=== PATIENT | female | born 1940 | race Caucasian/White ===

== ENCOUNTER 2019-07-01 15:19 | Emergency (ER) | payer MEDICARE ==
[2019-07-01] MEDS ORDERED: Sodium Chloride 0.9% 1000 ML 1,000 ML IV STA ×2 (15:38→17:19)
[2019-07-01] MEDS ORDERED: Zofran 4 MG/2 ML VIAL IV ONE (15:38)
[2019-07-01] MEDS ORDERED: Pepcid 20 MG VIAL IV ONE ×2 (15:38→15:41)
[2019-07-01] MEDS ORDERED: Zofran 4 MG/2 ML VIAL ONE (15:41)
[2019-07-01] MEDS ORDERED: Sodium Chloride 0.9% 1000 ML 1,000 ML ONE (15:41)
[2019-07-01 15:53] LABS: Lactic Acid 5.4 (0.4-2.0)
[2019-07-01 15:56] LABS: Hemoglobin 13.3 gm/dl (12.0-16.0); Mean Cell Volume 88.8 fl (78-100); Mean Corpuscular Hemoglobin 30.3 pg (26-32); Mean Corpuscular Hgb Concent. 34.1 g/dl (32-36); Mean Platelet Volume 9.9 fl (6-9.5); Platelet Count 225 K/mm3 (150-450); Red Blood Count 4.39 M/mm3 (4.1-5.4); Red Cell Distribution Width 14.6 % (11.5-14.0); White Blood Count 8.1 K/mm3 (4.0-10.5)
--- NOTE | 2019-07-01 16:02 | ERPHSYRPT ---
- History of Present Illness Time Seen by Provider: 07/01/19 16:00 Source: patient, family Exam Limitations: no limitations Patient Subjective Stated Complaint: pt family states that pt has not been eating for the past 2 weeks, vomitting started 45 minutes ago, pt has had little oral intake Triage Nursing Assessment: pt came into the er via wheelchair, pt vomiting, pt hypertensive, abdomen soft and distended, hypoactive bowel sounds, pt has hx of dementia Physician History: pt family states that pt has not been eating for the past 2 weeks, vomitting started 45 minutes ago, pt has had little oral intake pt has hx of dementia Timing/Duration: today Associated Symptoms: loss of appetite, weakness Allergies/Adverse Reactions: No Known Drug Allergies Allergy (Unverified 07/01/19 15:50) Home Medications: Amiodarone HCl 200 mg PO DAILY 07/01/19 [History] Atenolol 50 mg PO DAILY 07/01/19 [History] Donepezil HCl 23 mg PO DAILY 07/01/19 [History] Duloxetine HCl 60 mg PO HS 07/01/19 [History] Lisinopril 40 mg PO DAILY 07/01/19 [History] Memantine HCl [Memantine HCl ER] 28 mg PO DAILY 07/01/19 [History] Metformin HCl 1,000 mg PO BID 07/01/19 [History] Pravastatin Sodium 20 mg PO DAILY 07/01/19 [History] Rivaroxaban [Xarelto] 15 mg PO DAILY 07/01/19 [History] Hx Tetanus, Diphtheria Vaccination/Date Given: Yes Hx Influenza Vaccination/Date Given: No Hx Pneumococcal Vaccination/Date Given: No Immunizations Up to Date: Yes - Review of Systems Constitutional: No Fever, No Chills Eyes: No Symptoms Ears, Nose, & Throat: No Symptoms Respiratory: No Cough, No Dyspnea Cardiac: No Chest Pain, No Edema, No Syncope Abdominal/Gastrointestinal: Vomiting, No Abdominal Pain, No Nausea, No Diarrhea Genitourinary Symptoms: No Dysuria Musculoskeletal: No Back Pain, No Neck Pain Skin: No Rash Neurological: No Dizziness, No Focal Weakness, No Sensory Changes Psychological: No Symptoms Endocrine: No Symptoms All Other Systems: Reviewed and Negative - Past Medical History Pertinent Past Medical History: Yes Neurological History: Dementia ENT History: Cataracts Cardiac History: Arrhythmia Respiratory History: No Pertinent History Endocrine Medical History: Diabetes Type II Musculoskeletal History: No Pertinent History GI Medical History: No Pertinent History History: Renal Disease Psycho-Social History: Anxiety Female Reproductive Disorders: No Pertinent History Other Medical History: stage renal failure - Past Surgical History Past Surgical History: Yes Neuro Surgical History: No Pertinent History Cardiac: No Pertinent History Respiratory: No Pertinent History Gastrointestinal: Cholecystectomy Genitourinary: No Pertinent History Musculoskeletal: Orthopedic Surgery Female Surgical History: Hysterectomy - Social History Smoking Status: Never smoker Exposure to second hand smoke: No Drug Use: none - Female History Hx Now: No - Nursing Vital Signs Nursing Vital Signs: Initial Vital Signs Temperature 97.5 F 07/01/19 15:24 Pulse Rate 72 07/01/19 15:24 Respiratory Rate 17 07/01/19 15:24 Blood Pressure 188/75 07/01/19 15:24 O2 Sat by Pulse Oximetry 93 L 07/01/19 15:24 Pain Scale Pain Intensity 0 - Physical Exam General Appearance: no apparent distress, alert Eye Exam: PERRL/EOMI, eyes nml inspection Ears, Nose, Throat Exam: normal ENT inspection, TMs normal, pharynx normal, moist mucous membranes Neck Exam: normal inspection, non-tender, supple, full range of motion Respiratory Exam: normal breath sounds, lungs clear, No respiratory distress Cardiovascular Exam: regular rate/rhythm, normal heart sounds, normal peripheral pulses Gastrointestinal/Abdomen Exam: soft, normal bowel sounds, No tenderness, No mass Back Exam: normal inspection, normal range of motion, No CVA tenderness, No vertebral tenderness Extremity Exam: normal inspection, normal range of motion, pelvis stable Neurologic Exam: alert, oriented x 3, cooperative, normal mood/affect, nml cerebellar function, nml station & gait, sensation nml, No motor deficits Skin Exam: normal color, warm, dry, No rash Lymphatic Exam: No adenopathy SpO2: 93 - Course Nursing assessment & vital signs reviewed: Yes Ordered Tests: Active Orders 24 hr Category Date Time Status EKG-ER Only STAT Care 07/01/19 15:39 Active Lynch [Catheter-Chapman Lynch] STAT Care 07/01/19 16:28 Active IV Insertion STAT Care 07/01/19 16:27 Active IV Insertion-2nd Peripheral STAT Care 07/01/19 16:27 Active AMYLASE Stat Lab 07/01/19 15:45 Completed CBC W DIFF Stat Lab 07/01/19 15:45 Completed CMP Stat Lab 07/01/19 15:45 Completed LIPASE Stat Lab 07/01/19 15:45 Completed Lactic Acid Stat Lab 07/01/19 15:50 Results Manual Differential NC Stat Lab 07/01/19 15:45 Completed TROPONIN Q3H Lab 07/01/19 15:45 Completed TROPONIN Q3H Lab 07/01/19 18:45 Ordered TROPONIN Q3H Lab 07/01/19 21:45 Ordered TROPONIN Q3H Lab 07/02/19 00:45 Ordered TROPONIN Q3H Lab 07/02/19 03:45 Ordered UA W/RFX UR CULTURE Stat Lab 07/01/19 16:36 Completed Medication Summary Generic Name Dose Route Start Last Admin Trade Name Freq PRN Reason Stop Dose Admin Sodium Chloride 1,000 mls @ 999 mls/hr 07/01/19 17:02 07/01/19 17:24 Sodium Chloride 0.9% 1000 Ml IV 07/01/19 18:02 999 mls/hr .Q1H1M STA Administration Sodium Chloride 1,000 mls @ 999 mls/hr 07/01/19 17:19 07/01/19 17:28 Sodium Chloride 0.9% 1000 Ml IV 07/01/19 18:19 999 mls/hr .Q1H1M STA Administration Discontinued Medications Generic Name Dose Route Start Last Admin Trade Name Freq PRN Reason Stop Dose Admin Famotidine 20 mg 07/01/19 15:38 07/01/19 15:54 Pepcid 20 Mg Vial IV 07/01/19 15:39 20 mg STAT ONE Administration Famotidine Confirm 07/01/19 15:41 Pepcid 20 Mg Vial Administered 07/01/19 15:42 Dose 20 mg IV .STK-MED ONE Sodium Chloride 1,000 mls @ 999 mls/hr 07/01/19 15:38 07/01/19 16:55 Sodium Chloride 0.9% 1000 Ml IV 07/01/19 16:38 Infused .Q1H1M STA Infusion Sodium Chloride Confirm 07/01/19 15:41 Sodium Chloride 0.9% 1000 Ml Administered 07/01/19 15:42 Dose 1,000 mls @ ud .ROUTE .STK-MED ONE Sodium Chloride Confirm 07/01/19 16:08 Sodium Chloride 0.9% 1000 Ml Administered 07/01/19 16:09 Dose 2,000 mls @ ud .ROUTE .STK-MED ONE Ondansetron HCl 4 mg 07/01/19 15:38 07/01/19 15:54 Zofran 4 Mg/2 Ml Vial IV 07/01/19 15:39 4 mg STAT ONE Administration Ondansetron HCl Confirm 07/01/19 15:41 Zofran 4 Mg/2 Ml Vial Administered 07/01/19 15:42 Dose 4 mg .ROUTE .K-[facility] ONE Lab/Rad Data: Laboratory Result Diagrams 07/01/19 15:45 07/01/19 15:45 Laboratory Results 07/01/19 07/01/19 07/01/19 Range/Units 16:36 15:50 15:45 WBC (4.0-10.5) K/mm3 RBC (4.1-5.4) M/mm3 Hgb (12.0-16.0) gm/dl Hct (35-47) % MCV (78-100) fl MCH (26-32) pg MCHC (32-36) g/dl RDW (11.5-14.0) % Plt Count (150-450) K/mm3 MPV (6-9.5) fl Segmented Neutrophils (36.0-66.0) % Lymphocytes (Manual) (24-44) % Monocytes (Manual) (0.0-12.0) % Eosinophils (Manual) (0.00-3.0) % Platelet Estimate (NORMAL) RBC Morphology Sodium (137-145) mmol/L Potassium (3.5-5.1) mmol/L Chloride (98-107) mmol/L Carbon Dioxide (22-30) mmol/L Anion Gap (5-15) MEQ/L BUN (7-17) mg/dL Creatinine (0.52-1.04) mg/dL Estimated GFR ML/MIN Glucose (74-106) mg/dL Lactic Acid 5.4 H (0.4-2.0) Calcium (8.4-10.2) mg/dL Total Bilirubin (0.2-1.3) mg/dL AST (14-36) U/L ALT (0-35) U/L Alkaline Phosphatase (38-126) U/L Troponin I < 0.012 (0.000-0.034) ng/mL Serum Total Protein (6.3-8.2) g/dL Albumin (3.5-5.0) g/dL Amylase (30-110) U/L Lipase (23-300) U/L Urine Color YELLOW (YELLOW) Urine Appearance SLIGHTLY CLOUDY (CLEAR) Urine pH 5.0 (5-6) Ur Specific Monitor 1.015 (1.005-1.025) Urine Protein 30 (Negative) Urine Ketones NEGATIVE (NEGATIVE) Urine Blood NEGATIVE (0-5) Osei/ul Urine Nitrite NEGATIVE (NEGATIVE) Urine Bilirubin NEGATIVE (NEGATIVE) Urine Urobilinogen NEGATIVE (0-1) mg/dL Ur Leukocyte Esterase NEGATIVE (NEGATIVE) Urine WBC (Auto) 0-2 (0-5) /HPF Urine RBC (Auto) NONE (0-2) /HPF U Hyaline Cast (Auto) 6-10 (0-2) /LPF U Epithel Cells (Auto) NONE (FEW) /HPF Urine Bacteria (Auto) NONE SEEN (NEGATIVE) /HPF Granular Casts (Auto) 0-2 (NEGATIVE) /LPF Urine Mucus (Auto) SLIGHT (NEGATIVE) /HPF Urine Culture Reflexed NO (NO) Urine Glucose NEGATIVE (NEGATIVE) mg/dL 07/01/19 07/01/19 Range/Units 15:45 15:45 WBC 8.1 (4.0-10.5) K/mm3 RBC 4.39 (4.1-5.4) M/mm3 Hgb 13.3 (12.0-16.0) gm/dl Hct 39.0 (35-47) % MCV 88.8 (78-100) fl MCH 30.3 (26-32) pg MCHC 34.1 (32-36) g/dl RDW 14.6 H (11.5-14.0) % Plt Count 225 (150-450) K/mm3 MPV 9.9 H (6-9.5) fl Segmented Neutrophils 77 H (36.0-66.0) % Lymphocytes (Manual) 17 L (24-44) % Monocytes (Manual) 4 (0.0-12.0) % Eosinophils (Manual) 2 (0.00-3.0) % Platelet Estimate NORMAL (NORMAL) RBC Morphology NORMAL Sodium 139 (137-145) mmol/L Potassium 4.4 (3.5-5.1) mmol/L Chloride 101 (98-107) mmol/L Carbon Dioxide 19 L (22-30) mmol/L Anion Gap 23.0 H (5-15) MEQ/L BUN 16 (7-17) mg/dL Creatinine 1.26 H (0.52-1.04) mg/dL Estimated GFR 43.7 ML/MIN Glucose 188 H (74-106) mg/dL Lactic Acid (0.4-2.0) Calcium 9.5 (8.4-10.2) mg/dL Total Bilirubin 0.40 (0.2-1.3) mg/dL AST 44 H (14-36) U/L ALT 40 H (0-35) U/L Alkaline Phosphatase 96 (38-126) U/L Troponin I (0.000-0.034) ng/mL Serum Total Protein 7.4 (6.3-8.2) g/dL Albumin 4.3 (3.5-5.0) g/dL Amylase 80 (30-110) U/L Lipase 189 (23-300) U/L Urine Color (YELLOW) Urine Appearance (CLEAR) Urine pH (5-6) Ur Specific Monitor (1.005-1.025) Urine Protein (Negative) Urine Ketones (NEGATIVE) Urine Blood (0-5) Osei/ul Urine Nitrite (NEGATIVE) Urine Bilirubin (NEGATIVE) Urine Urobilinogen (0-1) mg/dL Ur Leukocyte Esterase (NEGATIVE) Urine WBC (Auto) (0-5) /HPF Urine RBC (Auto) (0-2) /HPF U Hyaline Cast (Auto) (0-2) /LPF U Epithel Cells (Auto) (FEW) /HPF Urine Bacteria (Auto) (NEGATIVE) /HPF Granular Casts (Auto) (NEGATIVE) /LPF Urine Mucus (Auto) (NEGATIVE) /HPF Urine Culture Reflexed (NO) Urine Glucose (NEGATIVE) mg/dL - Progress Progress: improved Counseled pt/family regarding: lab results, diagnosis, need for follow-up - Departure Departure Disposition: Home Clinical Impression: Dehydration, mild, Chronic renal insufficiency, stage II (mild), Elevated lactic acid level Condition: Stable Critical Care Time: No Referrals: DOCTOR,NO FAMILY [Primary Care Provider] - Instructions: Vomiting -- Adult, Dehydration, Adult (DC) Additional Instructions: Discharge/Care Plan MARCOSKRISTAL Vikram was seen on 07/01/19 in the Emergency Room. The patient was counseled regarding Diagnosis,Lab results, Imaging studies, need for follow up and when to return to the Emergency Room. Prescriptions given: Discharge Note I have spoken with the patient and/or caregivers. I have explained the patient' s condition, diagnosis and treatment plan based on the information available to me at this time. I have answered the patient's and/or caregiver's questions and addressed any concerns. The patient and/or caregivers have as good understanding of the patient's diagnosis, condition and treatment plan as can be expected at this point. The vital signs have been stable. The patient's condition is stable and appropriate for discharge from the emergency department. The patient will pursue further outpatient evaluation with the primary care physician or other designated or consulting physician as outlined in the discharge instructions. The patient and/or caregivers are agreeable to this plan of care and follow-up instructions have been explained in detail. The patient and/or caregivers have received these instruction. The patient/and or caregivers are aware that any significant change in condition or worsening of symptoms should prompt an immediate return to this or the closest emergency department or call 911. Please talk to your primary care provider about stopping metformin to other anti diabetic meds. Atleast stop metformin for now or change it to once a day
[2019-07-01] MEDS ORDERED: Sodium Chloride 0.9% 1000 ML 2,000 ML ONE (16:08)
[2019-07-01 16:10] LABS: ALBUMIN 4.3 g/dL (3.5-5.0); BILIRUBIN,TOTAL 0.4 mg/dL (0.2-1.3); Calcium 9.5 mg/dL (8.4-10.2); Creatinine 1 1.26 mg/dL (0.52-1.04); Potassium 4.4 mmol/L (3.5-5.1); Total Protein 7.4 g/dL (6.3-8.2)
[2019-07-01 16:28] LABS: Eosinophil 2 % (0.00-3.0); Lymphocytes 17 % (24-44); Monocyte 4 % (0.0-12.0); Neutrophils 77 % (36.0-66.0); Platelet Estimate NORMAL (NORMAL); Total Cells Counted 100
[2019-07-01 16:47] LABS: Appearance SLIGHTLY CLOUDY (CLEAR); Bilirubin NEGATIVE (NEGATIVE); Blood NEGATIVE Ery/ul (0-5); Glucose NEGATIVE (NEGATIVE); Granular Casts 0-2 /LPF (NEGATIVE); Ketones NEGATIVE (NEGATIVE); Leukocyte Esterase NEGATIVE (NEGATIVE); Mucus SLIGHT /HPF (NEGATIVE); Nitrite NEGATIVE (NEGATIVE); Protein,Urine Dip 30 (Negative); Specific Gravity 1.015 (1.005-1.025); Urobilinogen NEGATIVE mg/dL (0-1); WBC 0-2 /HPF (0-5)
[2019-07-01 16:48] LABS: Bacteria NONE SEEN /HPF (NEGATIVE)
[2019-07-01] MEDS: Sodium Chloride 0.9% 1000 ML 1,000 ML IV STA ×2 (17:16→17:24)
[2019-07-01 18:34] VITALS: BP 186/70; PULSE 63; O2SAT 98
== END 2019-07-01 18:36 | disposition home or self-care (01) ==
LOC: ED 15:19
DX: E86.0 Dehydration (principal); N18.2 Chronic kidney disease, stage 2 (mild); R74.0 Nonspecific elevation of levels of transaminase and lactic acid dehydrogenase [LDH]
CPT/HCPCS: 36000; 36415; 51702; 80053; 81001; 82150; 83605; 83690; 84484; 85025; 93005; 96360; 96361; 96374; 96375; 99284; J2405

== ENCOUNTER 2020-11-13 10:24 | Emergency (ER) | payer MEDICARE ==
[2020-11-13] MEDS ORDERED: Rocephin 1000 MG INJ IM ONE (11:00)
[2020-11-13] MEDS ORDERED: Rocephin 1000 MG INJ ONE (11:04)
--- NOTE | 2020-11-13 11:12 | ERPHSYRPT ---
- History of Present Illness Time Seen by Provider: 11/13/20 10:55 Source: patient Exam Limitations: no limitations Patient Subjective Stated Complaint: facial swelling Triage Nursing Assessment: pt to ED with granddaughter c/o facial swelling onset last night. pt was at home when granddaughter began to notice R cheek swelling. R cheek has gone down some but swelling noted now in upper lip. no diff breathing or swallowing noted on arrival or reported. pt denies pain. granddaughter denies any new meds or foods introduced. Physician History: This is a 80-year-old white female who presents with swollen upper lip for approximately 2 days. Patient has upper dentures. She has some tenderness in the upper gum region on the right side. She denies fever. The patient has a history of hypertension, chronic renal insufficiency, [id number] diabetes and is on Xarelto chronically. She has dementia and history of anxiety. Timing/Duration: gradual onset, days (2) Severity: mild Prearrival Treatment: no prearrival treatment Modifying Factors: Improves With: nothing Associated Symptoms: other (Upper lip swelling right greater than left) Allergies/Adverse Reactions: cortisone Allergy (Verified 11/13/20 10:46) Rash Home Medications: Amiodarone HCl 200 mg PO DAILY 07/01/19 [History] Atenolol 50 mg PO DAILY 07/01/19 [History] Donepezil HCl 23 mg PO DAILY 07/01/19 [History] Duloxetine HCl 60 mg PO HS 07/01/19 [History] Rivaroxaban [Xarelto] 15 mg PO DAILY 07/01/19 [History] lisinopriL [Lisinopril] 40 mg PO DAILY 07/01/19 [History] Glimepiride 2 mg [Amaryl 2 MG] 2 mg PO DAILY 11/13/20 [History] Simvastatin 20Mg [Zocor 20Mg] 20 mg PO DAILY 11/13/20 [History] Hx Tetanus, Diphtheria Vaccination/Date Given: Yes Hx Influenza Vaccination/Date Given: Yes Hx Pneumococcal Vaccination/Date Given: No Travel Risk - International Travel Have you traveled outside of the country in past 3 weeks: No - Coronavirus Screening Are you exhibiting any of the following symptoms?: No Close contact with a COVID-19 positive Pt in past 14-21 Days: No - Review of Systems Constitutional: No Symptoms Eyes: No Symptoms Ears, Nose, & Throat: No Symptoms Respiratory: No Symptoms Cardiac: No Symptoms Abdominal/Gastrointestinal: No Symptoms Genitourinary Symptoms: No Symptoms Musculoskeletal: No Symptoms Skin: Other (Swollen upper lip) Neurological: No Symptoms Psychological: No Symptoms Endocrine: No Symptoms Hematologic/Lymphatic: No Symptoms Immunological/Allergic: No Symptoms All Other Systems: Reviewed and Negative - Past Medical History Pertinent Past Medical History: Yes Neurological History: Dementia ENT History: Cataracts Cardiac History: Arrhythmia, High Cholesterol, Hypertension Respiratory History: No Pertinent History Endocrine Medical History: Diabetes Type II Musculoskeletal History: Other GI Medical History: No Pertinent History History: Renal Disease Psycho-Social History: Anxiety Female Reproductive Disorders: No Pertinent History Other Medical History: OSTEOPENIA, ANXIETY/DEPRESSION, CKD STAGE 3, POLYNEUROPATHY (PATIENT DENIES N/T OR BURNING IN LEGS OR HANDS). FX TIBIA (PATIENT STATES HAS KINZA IN LEG BUT GRANDAUGHTER STATES NO KINZA BUT WAS FIXED WITH SCREWS) FX LEFT ELBOW A CHILD. CKD STAGE 3. - Past Surgical History Past Surgical History: Yes Neuro Surgical History: No Pertinent History Cardiac: No Pertinent History Respiratory: No Pertinent History Gastrointestinal: Cholecystectomy Genitourinary: No Pertinent History Musculoskeletal: Orthopedic Surgery Female Surgical History: Hysterectomy - Social History Smoking Status: Never smoker Exposure to second hand smoke: No Drug Use: none Patient Lives Alone: No (granddaughter) - Female History Hx Now: No - Nursing Vital Signs Nursing Vital Signs: Initial Vital Signs Temperature 97.4 F 11/13/20 10:36 Pulse Rate 62 11/13/20 10:36 Respiratory Rate 16 11/13/20 10:36 Blood Pressure 175/66 11/13/20 10:36 O2 Sat by Pulse Oximetry 97 11/13/20 10:36 Pain Scale Pain Intensity 0 - Physical Exam General Appearance: no apparent distress, alert, anxiety Eye Exam: bilateral eye: normal inspection, PERRL, EOMI Ear Exam: bilateral ear: auricle normal Nasal Exam: normal inspection Throat Exam: moist mucus membranes (Upper denture shows some looseness present. Right upper gingival irritation, ulceration and inflammation. There is a small hematoma present. 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, normal mood/affect, nml cerebellar function, nml station & gait, sensation nml Skin Exam: normal color, warm, dry SpO2 Interpretation: normal SpO2: 97 O2 Delivery: Room Air - Course Nursing assessment & vital signs reviewed: Yes Ordered Tests: Medication Summary Discontinued Medications Generic Name Dose Route Start Last Admin Trade Name Althea PRN Reason Stop Dose Admin Ceftriaxone Sodium 1,000 mg 11/13/20 11:00 Rocephin 1000 Mg Inj IM 11/13/20 11:01 STAT ONE - Progress Progress: unchanged Counseled pt/family regarding: diagnosis, need for follow-up - Departure Departure Disposition: Home Clinical Impression: Gingivitis, Gingival ulcer Condition: Stable Critical Care Time: No Referrals: SYDNIE VERDIN [Primary Care Provider] - Additional Instructions: Do not replace your upper denture. Rinse, swish and spit out your mouth 2-3 times a day with either warm salt water or Listerine type mouthwash. Stop your blood thinning medication if you noticed excessive bleeding. Call a dentist today to make arrangements for follow-up appointment. Take your antibiotics as prescribed. Prescriptions: Cephalexin Mh 500 mg [Keflex 500 mg] 500 mg PO TID #21 capsule
[2020-11-13 11:34] VITALS: BP 144/62; PULSE 67; O2SAT 96
== END 2020-11-13 11:43 | disposition home or self-care (01) ==
LOC: ED 10:24
DX: K05.10 Chronic gingivitis, plaque induced (principal); K06.8 Other specified disorders of gingiva and edentulous alveolar ridge
CPT/HCPCS: 96372; 99283; J0696

== ENCOUNTER 2021-05-26 16:41 | Inpatient (IN) | payer MEDICARE ==
[2021-05-26 17:23] LABS: Appearance CLEAR (CLEAR); Bacteria MODERATE /HPF (NEGATIVE); Bilirubin NEGATIVE (NEGATIVE); Blood SMALL Ery/ul (0-5); Glucose >=500 mg/dL (NEGATIVE); Ketones TRACE (NEGATIVE); Leukocyte Esterase TRACE (NEGATIVE); Mucus SLIGHT /HPF (NEGATIVE); Nitrite POSITIVE (NEGATIVE); Protein,Urine Dip 30 (Negative); Specific Gravity 1.021 (1.005-1.025); Urobilinogen NEGATIVE mg/dL (0-1)
[2021-05-26] MEDS ORDERED: FEVERALL 650 MG PR ONE (18:17)
[2021-05-26] MEDS ORDERED: FEVERALL 650 MG ONE (18:18)
[2021-05-26] MEDS ORDERED: FEVERALL 325 MG ONE (18:19)
[2021-05-26] MEDS ORDERED: VANCOMYCIN 2 GRAM/400 ML BAG 2 GM/400 ML PIGGYBACK IV ONE ×2 (18:25→21:49)
[2021-05-26] MEDS ORDERED: Zosyn 3.375 GM Vial 3.375 GM in Sodium Chloride 100ML MINI-BAG PLUS 100 ML IV ONE (18:25)
[2021-05-26] MEDS ORDERED: Sodium Chloride 0.9% 500 ML 500 ML IV ONE ×2 (18:26→21:36)
[2021-05-26 18:31] LABS: Hematocrit 34.4 % (35-47); Hemoglobin 10.3 gm/dl (12.0-16.0); Mean Cell Volume 73.8 fl (78-100); Mean Corpuscular Hemoglobin 22.1 pg (26-32); Mean Corpuscular Hgb Concent. 29.9 g/dl (32-36); Mean Platelet Volume 9.3 fl (7.5-11.0); Platelet Count 330 K/mm3 (150-450); Red Blood Count 4.66 M/mm3 (4.1-5.4); Red Cell Distribution Width 16.7 % (11.5-14.0)
[2021-05-26 18:44] LABS: MAGNESIUM 1.7 mg/dL (1.6-2.3)
[2021-05-26 18:45] LABS: ALBUMIN 4.2 g/dL (3.5-5.0); ANION GAP 23.3 MEQ/L (5-15); BILIRUBIN,TOTAL 1.2 mg/dL (0.2-1.3); Calcium 9.3 mg/dL (8.4-10.2); Creatinine 1 1.47 mg/dL (0.52-1.04); EST GLOMERULAR FILTRATION RATE 36.4 ML/MIN; Potassium 4.2 mmol/L (3.5-5.1); Total Protein 7.5 g/dL (6.3-8.2)
[2021-05-26] MEDS ORDERED: Sodium Chloride 0.9% 1000 ML 1,000 ML IV STA (19:07)
--- NOTE | 2021-05-26 19:51 | ERPHSYRPT ---
- History of Present Illness Time Seen by Provider: 05/26/21 16:45 Source: family Exam Limitations: clinical condition Patient Subjective Stated Complaint: Pt Grand daughter stated "I came home from work and she was like this. She has an odd sound to her speech and she is really weak. She was her normal self around 10 am this morning." Triage Nursing Assessment: Pt presented alert and oriented X 3, skin pwd. Pt lower extremeties +3 pitting edema. PT has wound on her coxyx. PT speech slightly slurred, no facial droop, bilateral strenth in all extremeties. Wound on her right foot great toe. Pt was incontinent. Urine smelled strongly. PT fo llows commands well. Pt has hx of dementia Physician History: 81 years old female with history of atrial fibrillation on Xarelto/amiodarone, congestive heart failure, diabetes mellitus poorly controlled with diabetic foot ulcer is brought in the ER with generalized weakness fatigue tiredness going on for quite some time with frequent falls and since morning she is more confused and not acting herself. She is having generalized shakiness. Patient is arousable to verbal command but not answering questions appropriately and moving all 4 extremities. History is limited. Family reports patient has been refusing to eat and drink as usual and is having a downhill course lately. Timing/Duration: today, constant, worse Severity: moderate Associated Symptoms: weakness Allergies/Adverse Reactions: cortisone Allergy (Verified 11/13/20 10:46) Rash Home Medications: Amiodarone HCl 200 mg PO DAILY 07/01/19 [History] Atenolol 50 mg PO DAILY 07/01/19 [History] Donepezil HCl 23 mg PO DAILY 07/01/19 [History] Duloxetine HCl 60 mg PO HS 07/01/19 [History] Rivaroxaban [Xarelto] 15 mg PO DAILY 07/01/19 [History] lisinopriL [Lisinopril] 40 mg PO DAILY 07/01/19 [History] Glimepiride 2 mg [Amaryl 2 MG] 2 mg PO DAILY 11/13/20 [History] Simvastatin 20Mg [Zocor 20Mg] 20 mg PO DAILY 11/13/20 [History] Dapagliflozin Propanediol [Farxiga] 10 mg PO DAILY 05/26/21 [History] Furosemide 20 mg [Lasix 20 mg] 20 mg PO DAILY 05/26/21 [History] Hx Tetanus, Diphtheria Vaccination/Date Given: Yes Hx Influenza Vaccination/Date Given: Yes Hx Pneumococcal Vaccination/Date Given: No Immunizations Up to Date: Yes Travel Risk - International Travel Have you traveled outside of the country in past 3 weeks: No - Coronavirus Screening Are you exhibiting any of the following symptoms?: No Close contact with a COVID-19 positive Pt in past 14-21 Days: No - Vaccine Status Have you recieved a Covid-19 vaccination: Yes [employer]: Moderna - Vaccination Dates Date of 2cond Vaccination (if applicable): 12/2020 - Review of Systems All Other Systems: Unable due to condition, Unable due to dementia - Past Medical History Pertinent Past Medical History: Yes Neurological History: Dementia ENT History: Cataracts Cardiac History: Arrhythmia, High Cholesterol, Hypertension Respiratory History: No Pertinent History Endocrine Medical History: Diabetes Type II Musculoskeletal History: Other GI Medical History: No Pertinent History History: Renal Disease Psycho-Social History: Anxiety Female Reproductive Disorders: No Pertinent History Other Medical History: OSTEOPENIA, ANXIETY/DEPRESSION, CKD STAGE 3, POLYNEUROPATHY (PATIENT DENIES N/T OR BURNING IN LEGS OR HANDS). FX TIBIA (PATIENT STATES HAS KINZA IN LEG BUT GRANDAUGHTER STATES NO KINZA BUT WAS FIXED WITH SCREWS) FX LEFT ELBOW A CHILD. CKD STAGE 3. - Past Surgical History Past Surgical History: Yes Neuro Surgical History: No Pertinent History Cardiac: No Pertinent History Respiratory: No Pertinent History Gastrointestinal: Cholecystectomy Genitourinary: No Pertinent History Musculoskeletal: Orthopedic Surgery Female Surgical History: Hysterectomy - Social History Smoking Status: Never smoker Exposure to second hand smoke: No Drug Use: none Patient Lives Alone: No (granddaughter) - Nursing Vital Signs Nursing Vital Signs: Initial Vital Signs Pulse Rate 96 H 05/26/21 16:42 Respiratory Rate 22 05/26/21 16:42 Blood Pressure 152/114 05/26/21 16:42 O2 Sat by Pulse Oximetry 95 05/26/21 16:42 Pain Scale Pain Intensity 0 - Physical Exam General Appearance: no apparent distress, alert, lethargy Eye Exam: eyes nml inspection Ears, Nose, Throat Exam: TMs normal, dry mucous membranes, pharyngeal erythema Neck Exam: normal inspection, non-tender, supple Respiratory Exam: normal breath sounds, lungs clear Cardiovascular Exam: normal heart sounds, irregular, edema (1+ bilateral) Gastrointestinal/Abdomen Exam: soft, normal bowel sounds, No tenderness Extremity Exam: pelvis stable, swelling, other (3 x 2 cm area of right great toe diabetic ulcer with inverted edges, dark eschar, erythema around to involve the whole big toe. Mild swelling of distal foot as well.) Neurologic Exam: alert, No oriented x 3, No cooperative, No normal mood/affect, No nml station & gait Skin Exam: normal color SpO2 Interpretation: normal SpO2: 90 O2 Delivery: Room Air - Course EKG Interpreted by Me: RATE (95), Sinus Rhythm, Left [place] Deviation, Non- specific ST Changes, Other (Prolonged NM interval) Ordered Tests: Active Orders 24 hr Category Date Time Status EKG-ER Only STAT Care 05/26/21 17:06 Active IV Insertion STAT Care 05/26/21 17:06 Active CERVICAL SPINE WO CONTRAST [CT] Stat Exams 05/26/21 17:06 Taken CHEST 1 VIEW (PORTABLE) Stat Exams 05/26/21 17:06 Taken FOOT (2 VIEWS) Stat Exams 05/26/21 17:38 Taken HEAD WITHOUT CONTRAST [CT] Stat Exams 05/26/21 17:06 Taken ABG [ARTERIAL BLOOD GASES] Stat Lab 05/26/21 19:20 Results BLOOD CULTURE Stat Lab 05/26/21 19:08 Received BNP [NT PRO BNP] Stat Lab 05/26/21 18:16 Completed CBC W DIFF Stat Lab 05/26/21 18:16 Completed CK (IN-HOUSE) [CK-Creatinine Phosphokinase] Stat Lab 05/26/21 18:16 Completed CMP Stat Lab 05/26/21 18:16 Completed CULTURE,URINE Stat Lab 05/26/21 17:08 Received Lactic Acid Stat Lab 05/26/21 18:17 Completed Lactic Acid Stat Lab 05/26/21 20:20 Received MAGNESIUM Stat Lab 05/26/21 18:16 Completed Manual Differential NC Stat Lab 05/26/21 18:16 Completed POCT GLUCOSE Stat Lab 05/26/21 16:47 Completed TROPONIN Q3H Lab 05/26/21 18:16 Completed TROPONIN Q3H Lab 05/26/21 20:00 Completed TROPONIN Q3H Lab 05/26/21 23:15 Ordered TROPONIN Q3H Lab 05/27/21 02:15 Ordered TROPONIN Q3H Lab 05/27/21 05:15 Ordered TSH [TSH, 3RD Generation] Stat Lab 05/26/21 18:16 Completed UA W/RFX UR CULTURE Stat Lab 05/26/21 17:08 Completed Transfer Order Routine Transfer 05/26/21 Ordered Medication Summary Discontinued Medications Generic Name Dose Route Start Last Admin Trade Name Althea PRN Reason Stop Dose Admin Acetaminophen 975 mg 05/26/21 18:17 05/26/21 18:20 [place] 650 Mg NM 05/26/21 18:18 975 mg STAT ONE Administration Acetaminophen Confirm 05/26/21 18:18 [place] 650 Mg Administered 05/26/21 18:19 Dose 650 mg .ROUTE .STK-MED ONE Acetaminophen Confirm 05/26/21 18:19 [place] 325 Mg Administered 05/26/21 18:20 Dose 325 mg .ROUTE .STK-MED ONE Piperacillin Sod/Tazobactam 100 mls @ 200 mls/hr 05/26/21 18:25 05/26/21 20:24 Sod 3.375 gm/ Sodium Chloride IV 05/26/21 18:54 200 mls/hr STAT ONE Administration Vancomycin HCl 2 gm in 400 mls @ 133.333 mls/hr 05/26/21 18:25 Vancomycin 2 Gram/400 Ml Bag IV 05/26/21 21:24 STAT ONE Sodium Chloride 500 mls @ 500 mls/hr 05/26/21 18:26 Sodium Chloride 0.9% 500 Ml IV 05/26/21 19:25 .Q1H ONE Sodium Chloride 1,000 mls @ 999 mls/hr 05/26/21 19:07 05/26/21 20:30 Sodium Chloride 0.9% 1000 Ml IV 05/26/21 20:07 999 mls/hr .Q1H1M STA Administration Sodium Chloride Confirm 05/26/21 20:22 Sodium Chloride 100ml Mini-Bag Plus Administered 05/26/21 20:23 Dose 100 mls @ ud IV .STK-MED ONE Sodium Chloride Confirm 05/26/21 20:28 Sodium Chloride 0.9% 1000 Ml Administered 05/26/21 20:29 Dose 1,000 mls @ ud .ROUTE .STK-MED ONE Insulin Human Regular 8 unit 05/26/21 20:21 Humulin R IV 05/26/21 20:22 STAT ONE Piperacillin Sod/Tazobactam Sod Confirm 05/26/21 20:22 Zosyn 3.375 Gm Vial Administered 05/26/21 20:23 Dose 3.375 gm IV .STK-MED ONE Lab/Rad Data: Laboratory Result Diagrams 05/26/21 18:16 05/26/21 19:20 Laboratory Results 05/26/21 05/26/21 05/26/21 Range/Units 20:00 19:50 19:20 WBC (4.0-10.5) K/mm3 RBC (4.1-5.4) M/mm3 Hgb (12.0-16.0) gm/dl Hct (35-47) % MCV (78-100) fl MCH (26-32) pg MCHC (32-36) g/dl RDW (11.5-14.0) % Plt Count (150-450) K/mm3 MPV (7.5-11.0) fl Puncture Site RIGHT RADIAL pCO2 22 L (35-45) mmHg pO2 72 L (75-100) mmHg Base Excess -8.6 L (-2.0-2.0) O2 Saturation 94.2 (94-100) g/dF ABG pH 7.41 (7.35-7.45) ABG HCO3 13.9 L* (22-28) ABG O2 Sat (Measured) 96.3 (95-100) % Kiet Test YES A-a Gradient 50 Hemoglobin Pending Carboxyhemoglobin 1.4 (0.0-6.9) % THgb Methemoglobin 0.8 L (1.4-1.5) % POC O2 Flow Rate 21 % Sodium (137-145) mmol/L Potassium 3.9 (3.5-5.1) mmol/L Chloride (98-107) mmol/L Carbon Dioxide 14 L (22-30) mmol/L Anion Gap (5-15) MEQ/L BUN (7-17) mg/dL Creatinine (0.52-1.04) mg/dL Estimated GFR ML/MIN Glucose (74-106) mg/dL POC Glucometer (74 to 106) mg/dL Lactic Acid (0.4-2.0) Calcium (8.4-10.2) mg/dL Magnesium (1.6-2.3) mg/dL Total Bilirubin (0.2-1.3) mg/dL AST (14-36) U/L ALT (0-35) U/L Alkaline Phosphatase (38-126) U/L Creatine Kinase (30-135) U/L Troponin I 0.031 (0.000-0.034) ng/mL NT-Pro-B Natriuret Pep (0-1800) pg/mL Serum Total Protein (6.3-8.2) g/dL Albumin (3.5-5.0) g/dL TSH 3rd Generation (0.47-4.68) mIU/L Urine Color (YELLOW) Urine Appearance (CLEAR) Urine pH (5-6) Ur Specific [place] (1.005-1.025) Urine Protein (Negative) Urine Ketones (NEGATIVE) Urine Blood (0-5) Osei/ul Urine Nitrite (NEGATIVE) Urine Bilirubin (NEGATIVE) Urine Urobilinogen (0-1) mg/dL Ur Leukocyte Esterase (NEGATIVE) Urine WBC (Auto) (0-5) /HPF Urine RBC (Auto) (0-2) /HPF U Epithel Cells (Auto) (FEW) /HPF Urine Bacteria (Auto) (NEGATIVE) /HPF Urine Mucus (Auto) (NEGATIVE) /HPF Urine Culture Reflexed (NO) Urine Glucose (NEGATIVE) mg/dL SARS-CoV-2 (PCR) NEGATIVE (NEGATIVE) 05/26/21 05/26/21 05/26/21 Range/Units 18:17 18:16 18:16 WBC (4.0-10.5) K/mm3 RBC (4.1-5.4) M/mm3 Hgb (12.0-16.0) gm/dl Hct (35-47) % MCV (78-100) fl MCH (26-32) pg MCHC (32-36) g/dl RDW (11.5-14.0) % Plt Count (150-450) K/mm3 MPV (7.5-11.0) fl Puncture Site pCO2 (35-45) mmHg pO2 (75-100) mmHg Base Excess (-2.0-2.0) O2 Saturation (94-100) g/dF ABG pH (7.35-7.45) ABG HCO3 (22-28) ABG O2 Sat (Measured) (95-100) % Kiet Test A-a Gradient Hemoglobin Carboxyhemoglobin (0.0-6.9) % THgb Methemoglobin (1.4-1.5) % POC O2 Flow Rate % Sodium (137-145) mmol/L Potassium (3.5-5.1) mmol/L Chloride (98-107) mmol/L Carbon Dioxide (22-30) mmol/L Anion Gap (5-15) MEQ/L BUN (7-17) mg/dL Creatinine (0.52-1.04) mg/dL Estimated GFR ML/MIN Glucose (74-106) mg/dL POC Glucometer (74 to 106) mg/dL Lactic Acid 5.0 H (0.4-2.0) Calcium (8.4-10.2) mg/dL Magnesium (1.6-2.3) mg/dL Total Bilirubin (0.2-1.3) mg/dL AST (14-36) U/L ALT (0-35) U/L Alkaline Phosphatase (38-126) U/L Creatine Kinase (30-135) U/L Troponin I (0.000-0.034) ng/mL NT-Pro-B Natriuret Pep 5130 H (0-1800) pg/mL Serum Total Protein (6.3-8.2) g/dL Albumin (3.5-5.0) g/dL TSH 3rd Generation 77.600 H (0.47-4.68) mIU/L Urine Color (YELLOW) Urine Appearance (CLEAR) Urine pH (5-6) Ur Specific [place] (1.005-1.025) Urine Protein (Negative) Urine Ketones (NEGATIVE) Urine Blood (0-5) Osei/ul Urine Nitrite (NEGATIVE) Urine Bilirubin (NEGATIVE) Urine Urobilinogen (0-1) mg/dL Ur Leukocyte Esterase (NEGATIVE) Urine WBC (Auto) (0-5) /HPF Urine RBC (Auto) (0-2) /HPF U Epithel Cells (Auto) (FEW) /HPF Urine Bacteria (Auto) (NEGATIVE) /HPF Urine Mucus (Auto) (NEGATIVE) /HPF Urine Culture Reflexed (NO) Urine Glucose (NEGATIVE) mg/dL SARS-CoV-2 (PCR) (NEGATIVE) 05/26/21 05/26/21 05/26/21 Range/Units 18:16 18:16 18:16 WBC (4.0-10.5) K/mm3 RBC (4.1-5.4) M/mm3 Hgb (12.0-16.0) gm/dl Hct (35-47) % MCV (78-100) fl MCH (26-32) pg MCHC (32-36) g/dl RDW (11.5-14.0) % Plt Count (150-450) K/mm3 MPV (7.5-11.0) fl Puncture Site pCO2 (35-45) mmHg pO2 (75-100) mmHg Base Excess (-2.0-2.0) O2 Saturation (94-100) g/dF ABG pH (7.35-7.45) ABG HCO3 (22-28) ABG O2 Sat (Measured) (95-100) % Kiet Test A-a Gradient Hemoglobin Carboxyhemoglobin (0.0-6.9) % THgb Methemoglobin (1.4-1.5) % POC O2 Flow Rate % Sodium 132 L (137-145) mmol/L Potassium 4.2 (3.5-5.1) mmol/L Chloride 100 (98-107) mmol/L Carbon Dioxide 13 L* (22-30) mmol/L Anion Gap 23.3 H (5-15) MEQ/L BUN 18 H (7-17) mg/dL Creatinine 1.47 H (0.52-1.04) mg/dL Estimated GFR 36.4 ML/MIN Glucose 411 H (74-106) mg/dL POC Glucometer (74 to 106) mg/dL Lactic Acid (0.4-2.0) Calcium 9.3 (8.4-10.2) mg/dL Magnesium 1.7 (1.6-2.3) mg/dL Total Bilirubin 1.20 (0.2-1.3) mg/dL AST 33 (14-36) U/L ALT 16 (0-35) U/L Alkaline Phosphatase 143 H (38-126) U/L Creatine Kinase 46 (30-135) U/L Troponin I 0.026 (0.000-0.034) ng/mL NT-Pro-B Natriuret Pep (0-1800) pg/mL Serum Total Protein 7.5 (6.3-8.2) g/dL Albumin 4.2 (3.5-5.0) g/dL TSH 3rd Generation (0.47-4.68) mIU/L Urine Color (YELLOW) Urine Appearance (CLEAR) Urine pH (5-6) Ur Specific [place] (1.005-1.025) Urine Protein (Negative) Urine Ketones (NEGATIVE) Urine Blood (0-5) Osei/ul Urine Nitrite (NEGATIVE) Urine Bilirubin (NEGATIVE) Urine Urobilinogen (0-1) mg/dL Ur Leukocyte Esterase (NEGATIVE) Urine WBC (Auto) (0-5) /HPF Urine RBC (Auto) (0-2) /HPF U Epithel Cells (Auto) (FEW) /HPF Urine Bacteria (Auto) (NEGATIVE) /HPF Urine Mucus (Auto) (NEGATIVE) /HPF Urine Culture Reflexed (NO) Urine Glucose (NEGATIVE) mg/dL SARS-CoV-2 (PCR) (NEGATIVE) 05/26/21 05/26/21 05/26/21 Range/Units 18:16 17:08 16:47 WBC 8.0 (4.0-10.5) K/mm3 RBC 4.66 (4.1-5.4) M/mm3 Hgb 10.3 L (12.0-16.0) gm/dl Hct 34.4 L (35-47) % MCV 73.8 L (78-100) fl MCH 22.1 L (26-32) pg MCHC 29.9 L (32-36) g/dl RDW 16.7 H (11.5-14.0) % Plt Count 330 (150-450) K/mm3 MPV 9.3 (7.5-11.0) fl Puncture Site pCO2 (35-45) mmHg pO2 (75-100) mmHg Base Excess (-2.0-2.0) O2 Saturation (94-100) g/dF ABG pH (7.35-7.45) ABG HCO3 (22-28) ABG O2 Sat (Measured) (95-100) % Kiet Test A-a Gradient Hemoglobin Carboxyhemoglobin (0.0-6.9) % THgb Methemoglobin (1.4-1.5) % POC O2 Flow Rate % Sodium (137-145) mmol/L Potassium (3.5-5.1) mmol/L Chloride (98-107) mmol/L Carbon Dioxide (22-30) mmol/L Anion Gap (5-15) MEQ/L BUN (7-17) mg/dL Creatinine (0.52-1.04) mg/dL Estimated GFR ML/MIN Glucose (74-106) mg/dL POC Glucometer 395 H (74 to 106) mg/dL Lactic Acid (0.4-2.0) Calcium (8.4-10.2) mg/dL Magnesium (1.6-2.3) mg/dL Total Bilirubin (0.2-1.3) mg/dL AST (14-36) U/L ALT (0-35) U/L Alkaline Phosphatase (38-126) U/L Creatine Kinase (30-135) U/L Troponin I (0.000-0.034) ng/mL NT-Pro-B Natriuret Pep (0-1800) pg/mL Serum Total Protein (6.3-8.2) g/dL Albumin (3.5-5.0) g/dL TSH 3rd Generation (0.47-4.68) mIU/L Urine Color YELLOW (YELLOW) Urine Appearance CLEAR (CLEAR) Urine pH 5.0 (5-6) Ur Specific [place] 1.021 (1.005-1.025) Urine Protein 30 (Negative) Urine Ketones TRACE (NEGATIVE) Urine Blood SMALL (0-5) Osei/ul Urine Nitrite POSITIVE (NEGATIVE) Urine Bilirubin NEGATIVE (NEGATIVE) Urine Urobilinogen NEGATIVE (0-1) mg/dL Ur Leukocyte Esterase TRACE (NEGATIVE) Urine WBC (Auto) 16-25 (0-5) /HPF Urine RBC (Auto) 3-5 (0-2) /HPF U Epithel Cells (Auto) NONE (FEW) /HPF Urine Bacteria (Auto) MODERATE (NEGATIVE) /HPF Urine Mucus (Auto) SLIGHT (NEGATIVE) /HPF Urine Culture Reflexed YES (NO) Urine Glucose >=500 (NEGATIVE) mg/dL SARS-CoV-2 (PCR) (NEGATIVE) - Progress Progress: improved Progress Note: 05/26/21 19:49 She is given a small fluid bolus as patient seems to be in CHF and will give gentle hydration only. Work-up showed normal white count, chemistries consistent with dehydration with low bicarb, elevated gap and glucose, ABG is pending, could be patient in DKA. She has a lactate of 5 and right-sided pneumonia with infected right foot and given dose of Zosyn and vancomycin. Patient also has fairly elevated TSH which could be contributing to AMS and could be secondary to recent illness. While in the ER patient did spike fever 104 and given suppository, on reevaluation fever is improved and patient is more awake and alert. Discussed with and patient is being admitted. Plan discussed with patient and family who understand and agree with it. 05/26/21 21:38 ABG showed normal pH. She is given IV insulin we will continue with monitoring. Patient needs insulin drip. Discussed with .: Julio Will see patient in: hospital (full admit) Counseled pt/family regarding: lab results, diagnosis, rad results - Departure Departure Disposition: In-patient Admission Clinical Impression: Dehydration, Acute UTI, Hyperglycemia Sepsis Qualifiers: Sepsis type: sepsis due to unspecified organism Sepsis acute organ dysfunction status: unspecified Qualified Code(s): A41.9 - Sepsis, unspecified organism Altered mental status Qualifiers: Altered mental status type: unspecified Qualified Code(s): R41.82 - Altered mental status, unspecified Condition: Stable Critical Care Time: Yes Critical Care Time(excluding separately billable procedures): Critical 30-74 mins Referrals: MYRON JOHNSON NP [Primary Care Provider] -
[2021-05-26] MEDS ORDERED: HUMULIN R IV ONE (20:21)
[2021-05-26] MEDS ORDERED: Zosyn 3.375 GM Vial IV ONE (20:22)
[2021-05-26] MEDS ORDERED: Sodium Chloride 100ML MINI-BAG PLUS 100 ML IV ONE (20:22)
[2021-05-26] MEDS ORDERED: Sodium Chloride 0.9% 1000 ML 0 ML ONE (20:28)
[2021-05-26] MEDS ORDERED: HUMULIN R ONE (21:49)
[2021-05-26 22:17] LABS: BAND 6 % (0.0-2.0); Basophil 2 % (0.0-1.0); Lymphocytes 8 % (24-44); Monocyte 5 % (0.0-12.0); Neutrophils 79 % (36.0-66.0); Total Cells Counted 100
[2021-05-26] MEDS ORDERED: TYLENOL 325 MG PO PRN (22:17)
[2021-05-26] MEDS ORDERED: DUONEB 0.5-3 MG/3 ml Neb IH PRN (22:17)
[2021-05-26] MEDS ORDERED: VANCOCIN 1 GM VIAL*** 1 GM in Sodium Chloride 0.9% 250 ML 250 ML IV SCH (22:17)
[2021-05-26 22:18] LABS: ANISOCYTOSIS 2+; Hypochromia 1+; Microcytosis 2+; Platelet Estimate NORMAL (NORMAL); Polychromasia 1+
[2021-05-26] MEDS ORDERED: Sodium Chloride 0.9% 1000 ML 1,000 ML ONE (23:08)
[2021-05-27] MEDS: Sodium Chloride 0.9% W/ 20 mEq KCl/LITER 1,000 ML IV SCH ×2 (01:16→17:08)
[2021-05-27] MEDS ORDERED: Zosyn 3.375 GM Vial IV ONE (02:29)
[2021-05-27] MEDS ORDERED: Sodium Chloride 100ML MINI-BAG PLUS 100 ML IV ONE (02:34)
[2021-05-27] MEDS: Zosyn 3.375 GM Vial 3.375 GM in Sodium Chloride 100ML MINI-BAG PLUS 100 ML IV SCH ×2 (02:44→11:00)
[2021-05-27 05:51] LABS: Hematocrit 26.9 % (35-47); Hemoglobin 7.9 gm/dl (12.0-16.0); Mean Cell Volume 75.8 fl (78-100); Mean Corpuscular Hemoglobin 22.3 pg (26-32); Mean Corpuscular Hgb Concent. 29.4 g/dl (32-36); Mean Platelet Volume 10.5 fl (7.5-11.0); Platelet Count 293 K/mm3 (150-450); Red Blood Count 3.55 M/mm3 (4.1-5.4); Red Cell Distribution Width 16.7 % (11.5-14.0); White Blood Count 19.6 K/mm3 (4.0-10.5)
[2021-05-27] MEDS ORDERED: TROUGH DRUG LEVELS IJ ONE (06:00)
[2021-05-27 06:24] LABS: ALBUMIN 2.6 g/dL (3.5-5.0); ANION GAP 17.8 MEQ/L (5-15); BILIRUBIN,TOTAL 0.7 mg/dL (0.2-1.3); Creatinine 1 1.71 mg/dL (0.52-1.04); EST GLOMERULAR FILTRATION RATE 30.5 ML/MIN; Potassium 4.2 mmol/L (3.5-5.1); Total Protein 5.3 g/dL (6.3-8.2)
[2021-05-27] MEDS: HUMALOG SQ PRN ×3 (08:13→18:56)
--- NOTE | 2021-05-27 08:35 | PCM.HP ---
History of Present Illness - Chief Complaint Chief Complaint: fever, weakness for 2-3 days History of Present Illness: is a 81 year old female.with history of atrial fibrillation on Xarelto/amiodarone, congestive heart failure, diabetes mellitus poorly controlled with diabetic foot ulcer is brought in the ER with generalized weakness fatigue tiredness going on for quite some time with frequent falls and since morning she is more confused and not acting herself. She is having gene ralized shakiness. Patient is arousable to verbal command but not answering questions appropriately and moving all 4 extremities. History is limited. Family reports patient has been refusing to eat and drink as usual and is having a downhill course lately. Timing/Duration: today, constant, worse - Review of Systems Constitutional: Fever, Chills, Fatigue, Malaise, Weakness Eyes: No Symptoms Ears, Nose, & Throat: No Symptoms Respiratory: Cough, Orthopnea, Short Of Breath Cardiac: No Chest Pain, No Edema, No Syncope Abdominal/Gastrointestinal: No Abdominal Pain, No Nausea, No Vomiting, No Diarrhea Genitourinary Symptoms: No Dysuria Musculoskeletal: No Back Pain, No Neck Pain Skin: No Rash Neurological: No Dizziness, No Focal Weakness, No Sensory Changes Psychological: No Symptoms Endocrine: No Symptoms Hematologic/Lymphatic: No Symptoms Immunological/Allergic: No Symptoms Medications & Allergies Home Medications: Home Medication List Amiodarone HCl 200 mg PO DAILY 07/01/19 [History Confirmed 05/26/21] Atenolol 50 mg PO DAILY 07/01/19 [History Confirmed 05/26/21] Donepezil HCl 23 mg PO DAILY 07/01/19 [History Confirmed 05/26/21] Duloxetine HCl 60 mg PO HS 07/01/19 [History Confirmed 05/26/21] Rivaroxaban [Xarelto] 15 mg PO DAILY 07/01/19 [History Confirmed 05/26/21] lisinopriL [Lisinopril] 40 mg PO DAILY 07/01/19 [History Confirmed 05/26/21] Glimepiride 2 mg [Amaryl 2 MG] 2 mg PO DAILY 11/13/20 [History Confirmed 05/26/21] Simvastatin 20Mg [Zocor 20Mg] 20 mg PO DAILY 11/13/20 [History Confirmed 05/26/21] Dapagliflozin Propanediol [Farxiga] 10 mg PO QHS 05/26/21 [History Confirmed 05/26/21] Furosemide 20 mg [Lasix 20 mg] 20 mg PO DAILY 05/26/21 [History Confirmed 05/26/21] Allergies/Adverse Reactions: Allergies Allergy/AdvReac Type Severity Reaction Status Date / Time cortisone Allergy Rash Verified 05/26/21 22:26 - Past Medical History Past Medical History: Yes Neurological History: Dementia ENT History: Cataracts Cardiac History: Arrhythmia, High Cholesterol, Hypertension Respiratory History: No Pertinent History Endocrine Medical History: Diabetes Type II Musculoskelatal History: Other GI Medical History: No Pertinent History History: Renal Disease Pyscho-Social History: Anxiety, Depression Reproductive Disorders: No Pertinent History Comment: OSTEOPENIA, CKD STAGE 3, POLYNEUROPATHY. FX L TIBIA, FX LEFT ELBOW A CHILD. - Female History Are you now?: No - Past Surgical History Past Surgical History: Yes Neuro Surgical History: No Pertinent History Cardiac History: No Pertinent History Respiratory Surgery: No Pertinent History GI Surgical History: Cholecystectomy Genitourinary Surgical Hx: No Pertinent History Musculskeletal Surgical Hx: Orthopedic Surgery Female Surgical History: Hysterectomy Other Surgical History: L tibia plate and screws - Social History Smoking Status: Never smoker Exposure to second hand smoke: No Alcohol: None Drug Use: none - Physical Exam Vital Signs: Vital Signs - 24 hr Temp Pulse Resp BP Pulse Ox 05/27/21 05:22 92 L 05/27/21 04:49 97.1 F 70 16 98/47 98 05/26/21 22:33 97 F 75 18 96/52 92 L 05/26/21 21:40 90 L 05/26/21 21:00 101.3 F 76 25 H 99/45 94 L 05/26/21 20:00 102.9 F 84 22 125/61 96 05/26/21 19:01 103.6 F 89 22 200/73 90 L 05/26/21 18:09 104.0 F 91 H 22 190/76 92 L 05/26/21 16:42 96 H 22 152/114 95 General Appearance: alert, lethargy Neurologic Exam: alert, oriented x 3, cooperative, normal mood/affect, nml cerebellar function, nml station & gait, sensation nml, No motor deficits Eye Exam: PERRL/EOMI, eyes nml inspection Ears, Nose, Throat Exam: normal ENT inspection, TMs normal, pharynx normal, moist mucous membranes Neck Exam: normal inspection, non-tender, supple, full range of motion Respiratory Exam: diminished breath sounds, No respiratory distress Cardiovascular Exam: regular rate/rhythm, normal heart sounds, normal peripheral pulses Gastrointestinal/Abdomen Exam: soft, normal bowel sounds, No tenderness, No mass Back Exam: normal inspection, normal range of motion, No CVA tenderness, No vertebral tenderness Extremity Exam: normal inspection, normal range of motion, pelvis stable Skin Exam: normal color, warm, dry, No rash Lymphatic Exam: No adenopathy Results - Labs Lab/Micro Results: Lab Results-Last 24 Hours 05/26/21 05/26/21 05/26/21 Range/Units 16:47 17:08 18:16 WBC 8.0 (4.0-10.5) K/mm3 RBC 4.66 (4.1-5.4) M/mm3 Hgb 10.3 L (12.0-16.0) gm/dl Hct 34.4 L (35-47) % MCV 73.8 L (78-100) fl MCH 22.1 L (26-32) pg MCHC 29.9 L (32-36) g/dl RDW 16.7 H (11.5-14.0) % Plt Count 330 (150-450) K/mm3 MPV 9.3 (7.5-11.0) fl Segmented Neutrophils 79 H (36.0-66.0) % Band Neutrophils 6 H (0.0-2.0) % Lymphocytes (Manual) 8 L (24-44) % Monocytes (Manual) 5 (0.0-12.0) % Basophils (Manual) 2 H (0.0-1.0) % Hypochromia 1+ Platelet Estimate NORMAL (NORMAL) RBC Morphology ABNORMAL Polychromasia 1+ Anisocytosis 2+ Microcytosis 2+ Puncture Site pCO2 (35-45) mmHg pO2 (75-100) mmHg Base Excess (-2.0-2.0) O2 Saturation (94-100) g/dF ABG pH (7.35-7.45) ABG HCO3 (22-28) ABG O2 Sat (Measured) (95-100) % Kiet Test A-a Gradient Hemoglobin Carboxyhemoglobin (0.0-6.9) % THgb Methemoglobin (1.4-1.5) % POC O2 Flow Rate % Sodium (137-145) mmol/L Potassium (3.5-5.1) mmol/L Chloride (98-107) mmol/L Carbon Dioxide (22-30) mmol/L Anion Gap (5-15) MEQ/L BUN (7-17) mg/dL Creatinine (0.52-1.04) mg/dL Estimated GFR ML/MIN Glucose (74-106) mg/dL POC Glucometer 395 H (74 to 106) mg/dL Lactic Acid (0.4-2.0) Calcium (8.4-10.2) mg/dL Magnesium (1.6-2.3) mg/dL Total Bilirubin (0.2-1.3) mg/dL AST (14-36) U/L ALT (0-35) U/L Alkaline Phosphatase (38-126) U/L Creatine Kinase (30-135) U/L Troponin I (0.000-0.034) ng/mL NT-Pro-B Natriuret Pep (0-1800) pg/mL Serum Total Protein (6.3-8.2) g/dL Albumin (3.5-5.0) g/dL Procalcitonin (0.030-0.080) ng/mL TSH 3rd Generation (0.47-4.68) mIU/L Urine Color YELLOW (YELLOW) Urine Appearance CLEAR (CLEAR) Urine pH 5.0 (5-6) Ur Specific [place] 1.021 (1.005-1.025) Urine Protein 30 (Negative) Urine Ketones TRACE (NEGATIVE) Urine Blood SMALL (0-5) Osei/ul Urine Nitrite POSITIVE (NEGATIVE) Urine Bilirubin NEGATIVE (NEGATIVE) Urine Urobilinogen NEGATIVE (0-1) mg/dL Ur Leukocyte Esterase TRACE (NEGATIVE) Urine WBC (Auto) 16-25 (0-5) /HPF Urine RBC (Auto) 3-5 (0-2) /HPF U Epithel Cells (Auto) NONE (FEW) /HPF Urine Bacteria (Auto) MODERATE (NEGATIVE) /HPF Urine Mucus (Auto) SLIGHT (NEGATIVE) /HPF Urine Culture Reflexed YES (NO) Urine Glucose >=500 (NEGATIVE) mg/dL SARS-CoV-2 (PCR) (NEGATIVE) 08/31/21 08/31/21 08/31/21 Range/Units 18:16 18:16 18:16 WBC (4.0-10.5) K/mm3 RBC (4.1-5.4) M/mm3 Hgb (12.0-16.0) gm/dl Hct (35-47) % MCV (78-100) fl MCH (26-32) pg MCHC (32-36) g/dl RDW (11.5-14.0) % Plt Count (150-450) K/mm3 MPV (7.5-11.0) fl Segmented Neutrophils (36.0-66.0) % Band Neutrophils (0.0-2.0) % Lymphocytes (Manual) (24-44) % Monocytes (Manual) (0.0-12.0) % Basophils (Manual) (0.0-1.0) % Hypochromia Platelet Estimate (NORMAL) RBC Morphology Polychromasia Anisocytosis Microcytosis Puncture Site pCO2 (35-45) mmHg pO2 (75-100) mmHg Base Excess (-2.0-2.0) O2 Saturation (94-100) g/dF ABG pH (7.35-7.45) ABG HCO3 (22-28) ABG O2 Sat (Measured) (95-100) % Kiet Test A-a Gradient Hemoglobin Carboxyhemoglobin (0.0-6.9) % THgb Methemoglobin (1.4-1.5) % POC O2 Flow Rate % Sodium 132 L (137-145) mmol/L Potassium 4.2 (3.5-5.1) mmol/L Chloride 100 (98-107) mmol/L Carbon Dioxide 13 L* (22-30) mmol/L Anion Gap 23.3 H (5-15) MEQ/L BUN 18 H (7-17) mg/dL Creatinine 1.47 H (0.52-1.04) mg/dL Estimated GFR 36.4 ML/MIN Glucose 411 H (74-106) mg/dL POC Glucometer (74 to 106) mg/dL Lactic Acid (0.4-2.0) Calcium 9.3 (8.4-10.2) mg/dL Magnesium 1.7 (1.6-2.3) mg/dL Total Bilirubin 1.20 (0.2-1.3) mg/dL AST 33 (14-36) U/L ALT 16 (0-35) U/L Alkaline Phosphatase 143 H (38-126) U/L Creatine Kinase 46 (30-135) U/L Troponin I 0.026 (0.000-0.034) ng/mL NT-Pro-B Natriuret Pep (0-1800) pg/mL Serum Total Protein 7.5 (6.3-8.2) g/dL Albumin 4.2 (3.5-5.0) g/dL Procalcitonin (0.030-0.080) ng/mL TSH 3rd Generation (0.47-4.68) mIU/L Urine Color (YELLOW) Urine Appearance (CLEAR) Urine pH (5-6) Ur Specific [place] (1.005-1.025) Urine Protein (Negative) Urine Ketones (NEGATIVE) Urine Blood (0-5) Osei/ul Urine Nitrite (NEGATIVE) Urine Bilirubin (NEGATIVE) Urine Urobilinogen (0-1) mg/dL Ur Leukocyte Esterase (NEGATIVE) Urine WBC (Auto) (0-5) /HPF Urine RBC (Auto) (0-2) /HPF U Epithel Cells (Auto) (FEW) /HPF Urine Bacteria (Auto) (NEGATIVE) /HPF Urine Mucus (Auto) (NEGATIVE) /HPF Urine Culture Reflexed (NO) Urine Glucose (NEGATIVE) mg/dL SARS-CoV-2 (PCR) (NEGATIVE) 05/26/21 05/26/21 05/26/21 Range/Units 18:16 18:16 18:17 WBC (4.0-10.5) K/mm3 RBC (4.1-5.4) M/mm3 Hgb (12.0-16.0) gm/dl Hct (35-47) % MCV (78-100) fl MCH (26-32) pg MCHC (32-36) g/dl RDW (11.5-14.0) % Plt Count (150-450) K/mm3 MPV (7.5-11.0) fl Segmented Neutrophils (36.0-66.0) % Band Neutrophils (0.0-2.0) % Lymphocytes (Manual) (24-44) % Monocytes (Manual) (0.0-12.0) % Basophils (Manual) (0.0-1.0) % Hypochromia Platelet Estimate (NORMAL) RBC Morphology Polychromasia Anisocytosis Microcytosis Puncture Site pCO2 (35-45) mmHg pO2 (75-100) mmHg Base Excess (-2.0-2.0) O2 Saturation (94-100) g/dF ABG pH (7.35-7.45) ABG HCO3 (22-28) ABG O2 Sat (Measured) (95-100) % Kiet Test A-a Gradient Hemoglobin Carboxyhemoglobin (0.0-6.9) % THgb Methemoglobin (1.4-1.5) % POC O2 Flow Rate % Sodium (137-145) mmol/L Potassium (3.5-5.1) mmol/L Chloride (98-107) mmol/L Carbon Dioxide (22-30) mmol/L Anion Gap (5-15) MEQ/L BUN (7-17) mg/dL Creatinine (0.52-1.04) mg/dL Estimated GFR ML/MIN Glucose (74-106) mg/dL POC Glucometer (74 to 106) mg/dL Lactic Acid 5.0 H (0.4-2.0) Calcium (8.4-10.2) mg/dL Magnesium (1.6-2.3) mg/dL Total Bilirubin (0.2-1.3) mg/dL AST (14-36) U/L ALT (0-35) U/L Alkaline Phosphatase (38-126) U/L Creatine Kinase (30-135) U/L Troponin I (0.000-0.034) ng/mL NT-Pro-B Natriuret Pep 5130 H (0-1800) pg/mL Serum Total Protein (6.3-8.2) g/dL Albumin (3.5-5.0) g/dL Procalcitonin (0.030-0.080) ng/mL TSH 3rd Generation 77.600 H (0.47-4.68) mIU/L Urine Color (YELLOW) Urine Appearance (CLEAR) Urine pH (5-6) Ur Specific [place] (1.005-1.025) Urine Protein (Negative) Urine Ketones (NEGATIVE) Urine Blood (0-5) Osei/ul Urine Nitrite (NEGATIVE) Urine Bilirubin (NEGATIVE) Urine Urobilinogen (0-1) mg/dL Ur Leukocyte Esterase (NEGATIVE) Urine WBC (Auto) (0-5) /HPF Urine RBC (Auto) (0-2) /HPF U Epithel Cells (Auto) (FEW) /HPF Urine Bacteria (Auto) (NEGATIVE) /HPF Urine Mucus (Auto) (NEGATIVE) /HPF Urine Culture Reflexed (NO) Urine Glucose (NEGATIVE) mg/dL SARS-CoV-2 (PCR) (NEGATIVE) 05/26/21 05/26/21 05/26/21 Range/Units 19:20 19:50 20:00 WBC (4.0-10.5) K/mm3 RBC (4.1-5.4) M/mm3 Hgb (12.0-16.0) gm/dl Hct (35-47) % MCV (78-100) fl MCH (26-32) pg MCHC (32-36) g/dl RDW (11.5-14.0) % Plt Count (150-450) K/mm3 MPV (7.5-11.0) fl Segmented Neutrophils (36.0-66.0) % Band Neutrophils (0.0-2.0) % Lymphocytes (Manual) (24-44) % Monocytes (Manual) (0.0-12.0) % Basophils (Manual) (0.0-1.0) % Hypochromia Platelet Estimate (NORMAL) RBC Morphology Polychromasia Anisocytosis Microcytosis Puncture Site RIGHT RADIAL pCO2 22 L (35-45) mmHg pO2 72 L (75-100) mmHg Base Excess -8.6 L (-2.0-2.0) O2 Saturation 94.2 (94-100) g/dF ABG pH 7.41 (7.35-7.45) ABG HCO3 13.9 L* (22-28) ABG O2 Sat (Measured) 96.3 (95-100) % Kiet Test YES A-a Gradient 50 Hemoglobin Pending Carboxyhemoglobin 1.4 (0.0-6.9) % THgb Methemoglobin 0.8 L (1.4-1.5) % POC O2 Flow Rate 21 % Sodium (137-145) mmol/L Potassium 3.9 (3.5-5.1) mmol/L Chloride (98-107) mmol/L Carbon Dioxide 14 L (22-30) mmol/L Anion Gap (5-15) MEQ/L BUN (7-17) mg/dL Creatinine (0.52-1.04) mg/dL Estimated GFR ML/MIN Glucose (74-106) mg/dL POC Glucometer (74 to 106) mg/dL Lactic Acid (0.4-2.0) Calcium (8.4-10.2) mg/dL Magnesium (1.6-2.3) mg/dL Total Bilirubin (0.2-1.3) mg/dL AST (14-36) U/L ALT (0-35) U/L Alkaline Phosphatase (38-126) U/L Creatine Kinase (30-135) U/L Troponin I 0.031 (0.000-0.034) ng/mL NT-Pro-B Natriuret Pep (0-1800) pg/mL Serum Total Protein (6.3-8.2) g/dL Albumin (3.5-5.0) g/dL Procalcitonin (0.030-0.080) ng/mL TSH 3rd Generation (0.47-4.68) mIU/L Urine Color (YELLOW) Urine Appearance (CLEAR) Urine pH (5-6) Ur Specific [place] (1.005-1.025) Urine Protein (Negative) Urine Ketones (NEGATIVE) Urine Blood (0-5) Osei/ul Urine Nitrite (NEGATIVE) Urine Bilirubin (NEGATIVE) Urine Urobilinogen (0-1) mg/dL Ur Leukocyte Esterase (NEGATIVE) Urine WBC (Auto) (0-5) /HPF Urine RBC (Auto) (0-2) /HPF U Epithel Cells (Auto) (FEW) /HPF Urine Bacteria (Auto) (NEGATIVE) /HPF Urine Mucus (Auto) (NEGATIVE) /HPF Urine Culture Reflexed (NO) Urine Glucose (NEGATIVE) mg/dL SARS-CoV-2 (PCR) NEGATIVE (NEGATIVE) 05/26/21 05/26/21 05/26/21 Range/Units 20:20 21:42 23:03 WBC (4.0-10.5) K/mm3 RBC (4.1-5.4) M/mm3 Hgb (12.0-16.0) gm/dl Hct (35-47) % MCV (78-100) fl MCH (26-32) pg MCHC (32-36) g/dl RDW (11.5-14.0) % Plt Count (150-450) K/mm3 MPV (7.5-11.0) fl Segmented Neutrophils (36.0-66.0) % Band Neutrophils (0.0-2.0) % Lymphocytes (Manual) (24-44) % Monocytes (Manual) (0.0-12.0) % Basophils (Manual) (0.0-1.0) % Hypochromia Platelet Estimate (NORMAL) RBC Morphology Polychromasia Anisocytosis Microcytosis Puncture Site pCO2 (35-45) mmHg pO2 (75-100) mmHg Base Excess (-2.0-2.0) O2 Saturation (94-100) g/dF ABG pH (7.35-7.45) ABG HCO3 (22-28) ABG O2 Sat (Measured) (95-100) % Kiet Test A-a Gradient Hemoglobin Carboxyhemoglobin (0.0-6.9) % THgb Methemoglobin (1.4-1.5) % POC O2 Flow Rate % Sodium (137-145) mmol/L Potassium (3.5-5.1) mmol/L Chloride (98-107) mmol/L Carbon Dioxide (22-30) mmol/L Anion Gap (5-15) MEQ/L BUN (7-17) mg/dL Creatinine (0.52-1.04) mg/dL Estimated GFR ML/MIN Glucose (74-106) mg/dL POC Glucometer 346 H (74 to 106) mg/dL Lactic Acid 3.5 H (0.4-2.0) Calcium (8.4-10.2) mg/dL Magnesium (1.6-2.3) mg/dL Total Bilirubin (0.2-1.3) mg/dL AST (14-36) U/L ALT (0-35) U/L Alkaline Phosphatase (38-126) U/L Creatine Kinase (30-135) U/L Troponin I 0.043 H* (0.000-0.034) ng/mL NT-Pro-B Natriuret Pep (0-1800) pg/mL Serum Total Protein (6.3-8.2) g/dL Albumin (3.5-5.0) g/dL Procalcitonin (0.030-0.080) ng/mL TSH 3rd Generation (0.47-4.68) mIU/L Urine Color (YELLOW) Urine Appearance (CLEAR) Urine pH (5-6) Ur Specific [place] (1.005-1.025) Urine Protein (Negative) Urine Ketones (NEGATIVE) Urine Blood (0-5) Osei/ul Urine Nitrite (NEGATIVE) Urine Bilirubin (NEGATIVE) Urine Urobilinogen (0-1) mg/dL Ur Leukocyte Esterase (NEGATIVE) Urine WBC (Auto) (0-5) /HPF Urine RBC (Auto) (0-2) /HPF U Epithel Cells (Auto) (FEW) /HPF Urine Bacteria (Auto) (NEGATIVE) /HPF Urine Mucus (Auto) (NEGATIVE) /HPF Urine Culture Reflexed (NO) Urine Glucose (NEGATIVE) mg/dL SARS-CoV-2 (PCR) (NEGATIVE) 05/26/21 05/27/21 05/27/21 Range/Units 23:15 02:31 04:30 WBC (4.0-10.5) K/mm3 RBC (4.1-5.4) M/mm3 Hgb (12.0-16.0) gm/dl Hct (35-47) % MCV (78-100) fl MCH (26-32) pg MCHC (32-36) g/dl RDW (11.5-14.0) % Plt Count (150-450) K/mm3 MPV (7.5-11.0) fl Segmented Neutrophils (36.0-66.0) % Band Neutrophils (0.0-2.0) % Lymphocytes (Manual) (24-44) % Monocytes (Manual) (0.0-12.0) % Basophils (Manual) (0.0-1.0) % Hypochromia Platelet Estimate (NORMAL) RBC Morphology Polychromasia Anisocytosis Microcytosis Puncture Site pCO2 (35-45) mmHg pO2 (75-100) mmHg Base Excess (-2.0-2.0) O2 Saturation (94-100) g/dF ABG pH (7.35-7.45) ABG HCO3 (22-28) ABG O2 Sat (Measured) (95-100) % Kiet Test A-a Gradient Hemoglobin Carboxyhemoglobin (0.0-6.9) % THgb Methemoglobin (1.4-1.5) % POC O2 Flow Rate % Sodium (137-145) mmol/L Potassium (3.5-5.1) mmol/L Chloride (98-107) mmol/L Carbon Dioxide (22-30) mmol/L Anion Gap (5-15) MEQ/L BUN (7-17) mg/dL Creatinine (0.52-1.04) mg/dL Estimated GFR ML/MIN Glucose (74-106) mg/dL POC Glucometer 276 H (74 to 106) mg/dL Lactic Acid (0.4-2.0) Calcium (8.4-10.2) mg/dL Magnesium (1.6-2.3) mg/dL Total Bilirubin (0.2-1.3) mg/dL AST (14-36) U/L ALT (0-35) U/L Alkaline Phosphatase (38-126) U/L Creatine Kinase (30-135) U/L Troponin I 0.041 H* 0.034 (0.000-0.034) ng/mL NT-Pro-B Natriuret Pep (0-1800) pg/mL Serum Total Protein (6.3-8.2) g/dL Albumin (3.5-5.0) g/dL Procalcitonin (0.030-0.080) ng/mL TSH 3rd Generation (0.47-4.68) mIU/L Urine Color (YELLOW) Urine Appearance (CLEAR) Urine pH (5-6) Ur Specific [place] (1.005-1.025) Urine Protein (Negative) Urine Ketones (NEGATIVE) Urine Blood (0-5) Osei/ul Urine Nitrite (NEGATIVE) Urine Bilirubin (NEGATIVE) Urine Urobilinogen (0-1) mg/dL Ur Leukocyte Esterase (NEGATIVE) Urine WBC (Auto) (0-5) /HPF Urine RBC (Auto) (0-2) /HPF U Epithel Cells (Auto) (FEW) /HPF Urine Bacteria (Auto) (NEGATIVE) /HPF Urine Mucus (Auto) (NEGATIVE) /HPF Urine Culture Reflexed (NO) Urine Glucose (NEGATIVE) mg/dL SARS-CoV-2 (PCR) (NEGATIVE) 05/27/21 05/27/21 05/27/21 Range/Units 04:30 04:30 04:30 WBC 19.6 H (4.0-10.5) K/mm3 RBC 3.55 L (4.1-5.4) M/mm3 Hgb 7.9 L D (12.0-16.0) gm/dl Hct 26.9 L (35-47) % MCV 75.8 L (78-100) fl MCH 22.3 L (26-32) pg MCHC 29.4 L (32-36) g/dl RDW 16.7 H (11.5-14.0) % Plt Count 293 (150-450) K/mm3 MPV 10.5 (7.5-11.0) fl Segmented Neutrophils (36.0-66.0) % Band Neutrophils (0.0-2.0) % Lymphocytes (Manual) (24-44) % Monocytes (Manual) (0.0-12.0) % Basophils (Manual) (0.0-1.0) % Hypochromia Platelet Estimate (NORMAL) RBC Morphology Polychromasia Anisocytosis Microcytosis Puncture Site pCO2 (35-45) mmHg pO2 (75-100) mmHg Base Excess (-2.0-2.0) O2 Saturation (94-100) g/dF ABG pH (7.35-7.45) ABG HCO3 (22-28) ABG O2 Sat (Measured) (95-100) % Kiet Test A-a Gradient Hemoglobin Carboxyhemoglobin (0.0-6.9) % THgb Methemoglobin (1.4-1.5) % POC O2 Flow Rate % Sodium 133 L (137-145) mmol/L Potassium 4.2 (3.5-5.1) mmol/L Chloride 104 (98-107) mmol/L Carbon Dioxide 15 L* (22-30) mmol/L Anion Gap 17.8 H (5-15) MEQ/L BUN 23 H (7-17) mg/dL Creatinine 1.71 H (0.52-1.04) mg/dL Estimated GFR 30.5 ML/MIN Glucose 324 H (74-106) mg/dL POC Glucometer (74 to 106) mg/dL Lactic Acid (0.4-2.0) Calcium 8.0 L (8.4-10.2) mg/dL Magnesium (1.6-2.3) mg/dL Total Bilirubin 0.70 (0.2-1.3) mg/dL AST 22 (14-36) U/L ALT 10 (0-35) U/L Alkaline Phosphatase 77 (38-126) U/L Creatine Kinase (30-135) U/L Troponin I (0.000-0.034) ng/mL NT-Pro-B Natriuret Pep (0-1800) pg/mL Serum Total Protein 5.3 L (6.3-8.2) g/dL Albumin 2.6 L (3.5-5.0) g/dL Procalcitonin 66.500 H* (0.030-0.080) ng/mL TSH 3rd Generation (0.47-4.68) mIU/L Urine Color (YELLOW) Urine Appearance (CLEAR) Urine pH (5-6) Ur Specific [place] (1.005-1.025) Urine Protein (Negative) Urine Ketones (NEGATIVE) Urine Blood (0-5) Osei/ul Urine Nitrite (NEGATIVE) Urine Bilirubin (NEGATIVE) Urine Urobilinogen (0-1) mg/dL Ur Leukocyte Esterase (NEGATIVE) Urine WBC (Auto) (0-5) /HPF Urine RBC (Auto) (0-2) /HPF U Epithel Cells (Auto) (FEW) /HPF Urine Bacteria (Auto) (NEGATIVE) /HPF Urine Mucus (Auto) (NEGATIVE) /HPF Urine Culture Reflexed (NO) Urine Glucose (NEGATIVE) mg/dL SARS-CoV-2 (PCR) (NEGATIVE) 05/27/21 Range/Units 07:22 WBC (4.0-10.5) K/mm3 RBC (4.1-5.4) M/mm3 Hgb (12.0-16.0) gm/dl Hct (35-47) % MCV (78-100) fl MCH (26-32) pg MCHC (32-36) g/dl RDW (11.5-14.0) % Plt Count (150-450) K/mm3 MPV (7.5-11.0) fl Segmented Neutrophils (36.0-66.0) % Band Neutrophils (0.0-2.0) % Lymphocytes (Manual) (24-44) % Monocytes (Manual) (0.0-12.0) % Basophils (Manual) (0.0-1.0) % Hypochromia Platelet Estimate (NORMAL) RBC Morphology Polychromasia Anisocytosis Microcytosis Puncture Site pCO2 (35-45) mmHg pO2 (75-100) mmHg Base Excess (-2.0-2.0) O2 Saturation (94-100) g/dF ABG pH (7.35-7.45) ABG HCO3 (22-28) ABG O2 Sat (Measured) (95-100) % Kiet Test A-a Gradient Hemoglobin Carboxyhemoglobin (0.0-6.9) % THgb Methemoglobin (1.4-1.5) % POC O2 Flow Rate % Sodium (137-145) mmol/L Potassium (3.5-5.1) mmol/L Chloride (98-107) mmol/L Carbon Dioxide (22-30) mmol/L Anion Gap (5-15) MEQ/L BUN (7-17) mg/dL Creatinine (0.52-1.04) mg/dL Estimated GFR ML/MIN Glucose (74-106) mg/dL POC Glucometer 312 H (74 to 106) mg/dL Lactic Acid (0.4-2.0) Calcium (8.4-10.2) mg/dL Magnesium (1.6-2.3) mg/dL Total Bilirubin (0.2-1.3) mg/dL AST (14-36) U/L ALT (0-35) U/L Alkaline Phosphatase (38-126) U/L Creatine Kinase (30-135) U/L Troponin I (0.000-0.034) ng/mL NT-Pro-B Natriuret Pep (0-1800) pg/mL Serum Total Protein (6.3-8.2) g/dL Albumin (3.5-5.0) g/dL Procalcitonin (0.030-0.080) ng/mL TSH 3rd Generation (0.47-4.68) mIU/L Urine Color (YELLOW) Urine Appearance (CLEAR) Urine pH (5-6) Ur Specific [place] (1.005-1.025) Urine Protein (Negative) Urine Ketones (NEGATIVE) Urine Blood (0-5) Osei/ul Urine Nitrite (NEGATIVE) Urine Bilirubin (NEGATIVE) Urine Urobilinogen (0-1) mg/dL Ur Leukocyte Esterase (NEGATIVE) Urine WBC (Auto) (0-5) /HPF Urine RBC (Auto) (0-2) /HPF U Epithel Cells (Auto) (FEW) /HPF Urine Bacteria (Auto) (NEGATIVE) /HPF Urine Mucus (Auto) (NEGATIVE) /HPF Urine Culture Reflexed (NO) Urine Glucose (NEGATIVE) mg/dL SARS-CoV-2 (PCR) (NEGATIVE) Microbiology 05/26/21 18:16 Blood Culture Gram Stain - Final Blood - Radiology Impressions Radiology Exams & Impressions: Radiology Procedures Category Date Time Status CERVICAL SPINE WO CONTRAST [CT] Stat Exams 05/26/21 17:06 Taken CHEST 1 VIEW (PORTABLE) Stat Exams 05/26/21 17:06 Taken FOOT (2 VIEWS) Stat Exams 05/26/21 17:38 Taken HEAD WITHOUT CONTRAST [CT] Stat Exams 05/26/21 17:06 Taken - Other Procedures and Tests Respiratory Therapy 05/26/21 22:17 Oxygen Nasal Cannula 2 lpm Assessment/Plan (1) Septicemia due to E. coli Current Visit: Yes Status: Acute Assessment & Plan: Chief Complaint Diagnosis Sepsis, pneumonia, hyperglycemia, dehydration Allergies Allergy/AdvReac Type Severity Reaction Status Date / Time cortisone Allergy Rash Verified 05/26/21 22:26 Vital Signs (Last 24 hours) Temp Pulse Resp BP Pulse Ox 05/27/21 05:22 92 L 05/27/21 04:49 97.1 F 70 16 98/47 98 05/26/21 22:33 97 F 75 18 96/52 92 L 05/26/21 21:40 90 L 05/26/21 21:00 101.3 F 76 25 H 99/45 94 L 05/26/21 20:00 102.9 F 84 22 125/61 96 05/26/21 19:01 103.6 F 89 22 200/73 90 L 05/26/21 18:09 104.0 F 91 H 22 190/76 92 L 05/26/21 16:42 96 H 22 152/114 95 Home Medications Medication Instructions Recorded Confirmed Last Taken Type Dapagliflozin Propanediol [Farxiga] 10 mg PO QHS 05/26/21 05/26/21 05/25/21 22:00 History Furosemide 20 mg [Lasix 20 20 mg PO DAILY 05/26/21 05/26/21 05/26/21 08:00 History mg] Current Medications Generic Name Dose Route Start Last Admin Trade Name Freq PRN Reason Stop Dose Admin Acetaminophen 650 mg 05/26/21 22:17 Tylenol 325 Mg PO 06/25/21 22:16 Q4H PRN PRN PAIN AND/OR FEVER Potassium Chloride/Sodium Chloride 1,000 mls @ 75 mls/hr 05/26/21 22:17 05/27/21 01:16 Sodium Chloride 0.9% W/ 20 Meq Kcl/Liter IV 06/25/21 22:16 75 mls/hr .[id number] REANNA Administration Piperacillin Sod/Tazobactam 100 mls @ 200 mls/hr 05/27/21 12:00 Sod 2.25 gm/ Sodium Chloride IV 06/26/21 11:59 [id number] REANNA Insulin Human Lispro 0 unit 05/26/21 22:17 05/27/21 08:13 Humalog SQ 06/25/21 22:16 9 unit UD PRN Administration HYPERGLYCEMIA Pantoprazole Sodium 40 mg 05/27/21 10:00 Protonix 40 Mg Iv IV 06/26/21 09:59 [id number] REANNA Discontinued Medications Generic Name Dose Route Start Last Admin Trade Name Freq PRN Reason Stop Dose Admin Acetaminophen 975 mg 05/26/21 18:17 05/26/21 18:20 [place] 650 Mg [place] 05/26/21 18:18 975 mg STAT ONE Administration Acetaminophen Confirm 05/26/21 18:18 [place] 650 Mg Administered 05/26/21 18:19 Dose 650 mg .ROUTE .STK-MED ONE Acetaminophen Confirm 05/26/21 18:19 [place] 325 Mg Administered 05/26/21 18:20 Dose 325 mg .ROUTE .STK-MED ONE Albuterol/Ipratropium 3 ml 05/26/21 22:17 Duoneb 0.5-3 Mg/3 Ml Neb IH 06/25/21 22:16 Q4HPRN PRN SHORTNESS OF BREATH/WHEEZING Piperacillin Sod/Tazobactam 100 mls @ 200 mls/hr 05/26/21 18:25 05/26/21 20:24 Sod 3.375 gm/ Sodium Chloride IV 05/26/21 18:54 200 mls/hr STAT ONE Administration Vancomycin HCl 2 gm in 400 mls @ 133.333 mls/hr 05/26/21 18:25 05/26/21 21:51 Vancomycin 2 Gram/400 Ml Bag IV 05/26/21 21:24 133 mls/hr STAT ONE 133 mls/hr Administration Sodium Chloride 500 mls @ 500 mls/hr 05/26/21 18:26 05/26/21 21:38 Sodium Chloride 0.9% 500 Ml IV 05/26/21 19:25 500 mls/hr .Q1H ONE Administration Sodium Chloride 1,000 mls @ 999 mls/hr 05/26/21 19:07 05/26/21 20:30 Sodium Chloride 0.9% 1000 Ml IV 05/26/21 20:07 999 mls/hr .Q1H1M STA Administration Sodium Chloride Confirm 05/26/21 20:22 Sodium Chloride 100ml Mini-Bag Plus Administered 05/26/21 20:23 Dose 100 mls @ ud IV .STK-MED ONE Sodium Chloride Confirm 05/26/21 20:28 Sodium Chloride 0.9% 1000 Ml Administered 05/26/21 20:29 Dose 1,000 mls @ ud .ROUTE .STK-MED ONE Sodium Chloride Confirm 05/26/21 21:36 Sodium Chloride 0.9% 500 Ml Administered 05/26/21 21:37 Dose 500 mls @ ud IV .STK-MED ONE Vancomycin HCl Confirm 05/26/21 21:49 Vancomycin 2 Gram/400 Ml Bag Administered 05/26/21 21:50 Dose 2 gm in 400 mls @ ud IV .STK-MED ONE Piperacillin Sod/Tazobactam 100 mls @ 200 mls/hr 05/27/21 00:00 05/27/21 02:44 Sod 3.375 gm/ Sodium Chloride IV 05/30/21 00:00 200 mls/hr Q6HT REANNA Administration Vancomycin HCl 1 gm/ Sodium 250 mls @ 125 mls/hr 05/26/21 22:17 05/26/21 23:16 Chloride IV 06/25/21 22:16 Not Given Q12H REANNA Sodium Chloride Confirm 05/26/21 23:08 Sodium Chloride 0.9% 1000 Ml Administered 05/26/21 23:09 Dose 1,000 mls @ ud .ROUTE .STK-MED ONE Sodium Chloride Confirm 05/27/21 02:34 Sodium Chloride 100ml Mini-Bag Plus Administered 05/27/21 02:35 Dose 100 mls @ ud IV .STK-MED ONE Insulin Human Regular 8 unit 05/26/21 20:21 05/26/21 21:51 Humulin R IV 05/26/21 20:22 8 unit STAT ONE Administration Insulin Human Regular Confirm 05/26/21 21:49 Humulin R Administered 05/26/21 21:50 Dose 8 unit .ROUTE .STK-MED ONE Piperacillin Sod/Tazobactam Sod Confirm 05/26/21 20:22 Zosyn 3.375 Gm Vial Administered 05/26/21 20:23 Dose 3.375 gm IV .STK-MED ONE Piperacillin Sod/Tazobactam Sod Confirm 05/27/21 02:29 Zosyn 3.375 Gm Vial Administered 05/27/21 02:30 Dose 3.375 gm IV .STK-MED ONE Intake & Output (Last 24 hours) 05/24/21 05/25/21 05/26/21 05/27/21 11:59 11:59 11:59 11:59 Intake Total 1208 Output Total 850 Balance 358 Weight 95.4 kg Microbiology Results (Last 24 hours) 05/26/21 18:16 Blood Blood Culture Gram Stain - Final 05/26/21 18:16 Blood Blood Culture - Pending 05/26/21 19:08 Blood Blood Culture Gram Stain - Pending 05/26/21 19:08 Blood Blood Culture - Pending 05/26/21 17:08 Urine, Void Urine Culture - Pending Laboratory Results (Last 24 hours) 05/27/21 05/27/21 05/27/21 07:22 04:30 04:30 WBC RBC Hgb Hct MCV MCH MCHC RDW Plt Count MPV Segmented Neutrophils Band Neutrophils Lymphocytes (Manual) Monocytes (Manual) Basophils (Manual) Hypochromia Platelet Estimate RBC Morphology Polychromasia Anisocytosis Microcytosis Puncture Site pCO2 pO2 Base Excess O2 Saturation ABG pH ABG HCO3 ABG O2 Sat (Measured) Kiet Test A-a Gradient Carboxyhemoglobin Methemoglobin POC O2 Flow Rate Sodium 133 L Potassium 4.2 Chloride 104 Carbon Dioxide 15 L* Anion Gap 17.8 H BUN 23 H Creatinine 1.71 H Estimated GFR 30.5 Glucose 324 H POC Glucometer 312 H Lactic Acid Calcium 8.0 L Magnesium Total Bilirubin 0.70 AST 22 ALT 10 Alkaline Phosphatase 77 Creatine Kinase Troponin I NT-Pro-B Natriuret Pep Serum Total Protein 5.3 L Albumin 2.6 L Procalcitonin 66.500 H* TSH 3rd Generation Urine Color Urine Appearance Urine pH Ur Specific [place] Urine Protein Urine Ketones Urine Blood Urine Nitrite Urine Bilirubin Urine Urobilinogen Ur Leukocyte Esterase Urine WBC (Auto) Urine RBC (Auto) U Epithel Cells (Auto) Urine Bacteria (Auto) Urine Mucus (Auto) Urine Culture Reflexed Urine Glucose SARS-CoV-2 (PCR) 05/27/21 05/27/21 05/27/21 04:30 04:30 02:31 WBC 19.6 H RBC 3.55 L Hgb 7.9 L D Hct 26.9 L MCV 75.8 L MCH 22.3 L MCHC 29.4 L RDW 16.7 H Plt Count 293 MPV 10.5 Segmented Neutrophils Band Neutrophils Lymphocytes (Manual) Monocytes (Manual) Basophils (Manual) Hypochromia Platelet Estimate RBC Morphology Polychromasia Anisocytosis Microcytosis Puncture Site pCO2 pO2 Base Excess O2 Saturation ABG pH ABG HCO3 ABG O2 Sat (Measured) Kiet Test A-a Gradient Carboxyhemoglobin Methemoglobin POC O2 Flow Rate Sodium Potassium Chloride Carbon Dioxide Anion Gap BUN Creatinine Estimated GFR Glucose POC Glucometer Lactic Acid Calcium Magnesium Total Bilirubin AST ALT Alkaline Phosphatase Creatine Kinase Troponin I 0.034 0.041 H* NT-Pro-B Natriuret Pep Serum Total Protein Albumin Procalcitonin TSH 3rd Generation Urine Color Urine Appearance Urine pH Ur Specific [place] Urine Protein Urine Ketones Urine Blood Urine Nitrite Urine Bilirubin Urine Urobilinogen Ur Leukocyte Esterase Urine WBC (Auto) Urine RBC (Auto) U Epithel Cells (Auto) Urine Bacteria (Auto) Urine Mucus (Auto) Urine Culture Reflexed Urine Glucose SARS-CoV-2 (PCR) 05/26/21 05/26/21 05/26/21 23:15 23:03 21:42 WBC RBC Hgb Hct MCV MCH MCHC RDW Plt Count MPV Segmented Neutrophils Band Neutrophils Lymphocytes (Manual) Monocytes (Manual) Basophils (Manual) Hypochromia Platelet Estimate RBC Morphology Polychromasia Anisocytosis Microcytosis Puncture Site pCO2 pO2 Base Excess O2 Saturation ABG pH ABG HCO3 ABG O2 Sat (Measured) Kiet Test A-a Gradient Carboxyhemoglobin Methemoglobin POC O2 Flow Rate Sodium Potassium Chloride Carbon Dioxide Anion Gap BUN Creatinine Estimated GFR Glucose POC Glucometer 276 H 346 H Lactic Acid Calcium Magnesium Total Bilirubin AST ALT Alkaline Phosphatase Creatine Kinase Troponin I 0.043 H* NT-Pro-B Natriuret Pep Serum Total Protein Albumin Procalcitonin TSH 3rd Generation Urine Color Urine Appearance Urine pH Ur Specific [place] Urine Protein Urine Ketones Urine Blood Urine Nitrite Urine Bilirubin Urine Urobilinogen Ur Leukocyte Esterase Urine WBC (Auto) Urine RBC (Auto) U Epithel Cells (Auto) Urine Bacteria (Auto) Urine Mucus (Auto) Urine Culture Reflexed Urine Glucose SARS-CoV-2 (PCR) 05/26/21 05/26/21 05/26/21 20:20 20:00 19:50 WBC RBC Hgb Hct MCV MCH MCHC RDW Plt Count MPV Segmented Neutrophils Band Neutrophils Lymphocytes (Manual) Monocytes (Manual) Basophils (Manual) Hypochromia Platelet Estimate RBC Morphology Polychromasia Anisocytosis Microcytosis Puncture Site pCO2 pO2 Base Excess O2 Saturation ABG pH ABG HCO3 ABG O2 Sat (Measured) Kiet Test A-a Gradient Carboxyhemoglobin Methemoglobin POC O2 Flow Rate Sodium Potassium Chloride Carbon Dioxide Anion Gap BUN Creatinine Estimated GFR Glucose POC Glucometer Lactic Acid 3.5 H Calcium Magnesium Total Bilirubin AST ALT Alkaline Phosphatase Creatine Kinase Troponin I 0.031 NT-Pro-B Natriuret Pep Serum Total Protein Albumin Procalcitonin TSH 3rd Generation Urine Color Urine Appearance Urine pH Ur Specific [place] Urine Protein Urine Ketones Urine Blood Urine Nitrite Urine Bilirubin Urine Urobilinogen Ur Leukocyte Esterase Urine WBC (Auto) Urine RBC (Auto) U Epithel Cells (Auto) Urine Bacteria (Auto) Urine Mucus (Auto) Urine Culture Reflexed Urine Glucose SARS-CoV-2 (PCR) NEGATIVE 05/26/21 05/26/21 05/26/21 19:20 18:17 18:16 WBC RBC Hgb Hct MCV MCH MCHC RDW Plt Count MPV Segmented Neutrophils Band Neutrophils Lymphocytes (Manual) Monocytes (Manual) Basophils (Manual) Hypochromia Platelet Estimate RBC Morphology Polychromasia Anisocytosis Microcytosis Puncture Site RIGHT RADIAL pCO2 22 L pO2 72 L Base Excess -8.6 L O2 Saturation 94.2 ABG pH 7.41 ABG HCO3 13.9 L* ABG O2 Sat (Measured) 96.3 Kiet Test YES A-a Gradient 50 Carboxyhemoglobin 1.4 Methemoglobin 0.8 L POC O2 Flow Rate 21 Sodium Potassium 3.9 Chloride Carbon Dioxide 14 L Anion Gap BUN Creatinine Estimated GFR Glucose POC Glucometer Lactic Acid 5.0 H Calcium Magnesium Total Bilirubin AST ALT Alkaline Phosphatase Creatine Kinase Troponin I NT-Pro-B Natriuret Pep 5130 H Serum Total Protein Albumin Procalcitonin TSH 3rd Generation Urine Color Urine Appearance Urine pH Ur Specific [place] Urine Protein Urine Ketones Urine Blood Urine Nitrite Urine Bilirubin Urine Urobilinogen Ur Leukocyte Esterase Urine WBC (Auto) Urine RBC (Auto) U Epithel Cells (Auto) Urine Bacteria (Auto) Urine Mucus (Auto) Urine Culture Reflexed Urine Glucose SARS-CoV-2 (PCR) 05/26/21 05/26/21 05/26/21 18:16 18:16 18:16 WBC RBC Hgb Hct MCV MCH MCHC RDW Plt Count MPV Segmented Neutrophils Band Neutrophils Lymphocytes (Manual) Monocytes (Manual) Basophils (Manual) Hypochromia Platelet Estimate RBC Morphology Polychromasia Anisocytosis Microcytosis Puncture Site pCO2 pO2 Base Excess O2 Saturation ABG pH ABG HCO3 ABG O2 Sat (Measured) Kiet Test A-a Gradient Carboxyhemoglobin Methemoglobin POC O2 Flow Rate Sodium Potassium Chloride Carbon Dioxide Anion Gap BUN Creatinine Estimated GFR Glucose POC Glucometer Lactic Acid Calcium Magnesium 1.7 Total Bilirubin AST ALT Alkaline Phosphatase Creatine Kinase 46 Troponin I 0.026 NT-Pro-B Natriuret Pep Serum Total Protein Albumin Procalcitonin TSH 3rd Generation 77.600 H Urine Color Urine Appearance Urine pH Ur Specific [place] Urine Protein Urine Ketones Urine Blood Urine Nitrite Urine Bilirubin Urine Urobilinogen Ur Leukocyte Esterase Urine WBC (Auto) Urine RBC (Auto) U Epithel Cells (Auto) Urine Bacteria (Auto) Urine Mucus (Auto) Urine Culture Reflexed Urine Glucose SARS-CoV-2 (PCR) 05/26/21 05/26/21 05/26/21 18:16 18:16 17:08 WBC 8.0 RBC 4.66 Hgb 10.3 L Hct 34.4 L MCV 73.8 L MCH 22.1 L MCHC 29.9 L RDW 16.7 H Plt Count 330 MPV 9.3 Segmented Neutrophils 79 H Band Neutrophils 6 H Lymphocytes (Manual) 8 L Monocytes (Manual) 5 Basophils (Manual) 2 H Hypochromia 1+ Platelet Estimate NORMAL RBC Morphology ABNORMAL Polychromasia 1+ Anisocytosis 2+ Microcytosis 2+ Puncture Site pCO2 pO2 Base Excess O2 Saturation ABG pH ABG HCO3 ABG O2 Sat (Measured) Kiet Test A-a Gradient Carboxyhemoglobin Methemoglobin POC O2 Flow Rate Sodium 132 L Potassium 4.2 Chloride 100 Carbon Dioxide 13 L* Anion Gap 23.3 H BUN 18 H Creatinine 1.47 H Estimated GFR 36.4 Glucose 411 H POC Glucometer Lactic Acid Calcium 9.3 Magnesium Total Bilirubin 1.20 AST 33 ALT 16 Alkaline Phosphatase 143 H Creatine Kinase Troponin I NT-Pro-B Natriuret Pep Serum Total Protein 7.5 Albumin 4.2 Procalcitonin TSH 3rd Generation Urine Color YELLOW Urine Appearance CLEAR Urine pH 5.0 Ur Specific [place] 1.021 Urine Protein 30 Urine Ketones TRACE Urine Blood SMALL Urine Nitrite POSITIVE Urine Bilirubin NEGATIVE Urine Urobilinogen NEGATIVE Ur Leukocyte Esterase TRACE Urine WBC (Auto) 16-25 Urine RBC (Auto) 3-5 U Epithel Cells (Auto) NONE Urine Bacteria (Auto) MODERATE Urine Mucus (Auto) SLIGHT Urine Culture Reflexed YES Urine Glucose >=500 SARS-CoV-2 (PCR) 05/26/21 16:47 WBC RBC Hgb Hct MCV MCH MCHC RDW Plt Count MPV Segmented Neutrophils Band Neutrophils Lymphocytes (Manual) Monocytes (Manual) Basophils (Manual) Hypochromia Platelet Estimate RBC Morphology Polychromasia Anisocytosis Microcytosis Puncture Site pCO2 pO2 Base Excess O2 Saturation ABG pH ABG HCO3 ABG O2 Sat (Measured) Kiet Test A-a Gradient Carboxyhemoglobin Methemoglobin POC O2 Flow Rate Sodium Potassium Chloride Carbon Dioxide Anion Gap BUN Creatinine Estimated GFR Glucose POC Glucometer 395 H Lactic Acid Calcium Magnesium Total Bilirubin AST ALT Alkaline Phosphatase Creatine Kinase Troponin I NT-Pro-B Natriuret Pep Serum Total Protein Albumin Procalcitonin TSH 3rd Generation Urine Color Urine Appearance Urine pH Ur Specific [place] Urine Protein Urine Ketones Urine Blood Urine Nitrite Urine Bilirubin Urine Urobilinogen Ur Leukocyte Esterase Urine WBC (Auto) Urine RBC (Auto) U Epithel Cells (Auto) Urine Bacteria (Auto) Urine Mucus (Auto) Urine Culture Reflexed Urine Glucose SARS-CoV-2 (PCR) Orders (Last 24 hours) Category Date Time Status Bedrest ROUTINE Activity 05/26/21 22:17 Active Up With Assistance ROUTINE Activity 05/26/21 22:17 Active Admit as Inpatient ROUTINE Care 05/26/21 22:17 Active Code Status Order ROUTINE Care 05/26/21 22:17 Active EKG-ER Only STAT Care 05/26/21 17:06 Completed Fall Protocol Q1H Care 05/26/21 22:17 Active IV Care Q6H Care 05/26/21 22:17 Active IV Insertion STAT Care 05/26/21 17:06 Completed Miscellaneous Nursing Order OM.NOW Care 05/27/21 08:28 Ordered POCT Glucose Check ACHS Care 05/26/21 22:17 Active Arun Ling, Apply ROUTINE Care 05/26/21 22:17 Active Weight,Daily 0600 Care 05/26/21 22:17 Active Infection Control Consult ONCE Cons 05/27/21 00:10 Active Developer Automatic/Discharge Plan ONCE Cons 05/27/21 00:10 Active Nutritional Admission Screen ONCE Diet 05/27/21 00:10 Active CERVICAL SPINE WO CONTRAST [CT] Stat Exams 05/26/21 17:06 Taken CHEST 1 VIEW (PORTABLE) Stat Exams 05/26/21 17:06 Taken FOOT (2 VIEWS) Stat Exams 05/26/21 17:38 Taken HEAD WITHOUT CONTRAST [CT] Stat Exams 05/26/21 17:06 Taken ABG [ARTERIAL BLOOD GASES] Stat Lab 05/26/21 19:20 Results BLOOD CULTURE Stat Lab 05/26/21 19:08 Received BNP [NT PRO BNP] Stat Lab 05/26/21 18:16 Completed CBC W DIFF AM.LAB Lab 05/27/21 04:30 Completed CBC W DIFF Stat Lab 05/26/21 18:16 Completed CK (IN-HOUSE) [CK-Creatinine Phosphokinase] Stat Lab 05/26/21 18:16 Completed CMP AM.LAB Lab 05/27/21 04:30 Completed CMP Stat Lab 05/26/21 18:16 Completed CULTURE,URINE Stat Lab 05/26/21 17:08 Received Lactic Acid Stat Lab 05/26/21 18:17 Completed Lactic Acid Stat Lab 05/26/21 20:20 Completed MAGNESIUM Stat Lab 05/26/21 18:16 Completed Manual Differential NC Routine Lab 05/27/21 04:30 Completed Manual Differential NC Stat Lab 05/26/21 18:16 Completed POCT GLUCOSE Stat Lab 05/26/21 16:47 Completed POCT GLUCOSE Stat Lab 05/26/21 21:42 Completed POCT GLUCOSE Stat Lab 05/26/21 23:15 Completed POCT GLUCOSE Stat Lab 05/27/21 07:22 Completed PROCALCITONIN Stat Lab 05/27/21 04:30 Completed TROPONIN Q3H Lab 05/26/21 18:16 Completed TROPONIN Q3H Lab 05/26/21 20:00 Completed TROPONIN Q3H Lab 05/26/21 23:03 Completed TROPONIN Q3H Lab 05/27/21 02:31 Completed TROPONIN Q3H Lab 05/27/21 04:30 Completed TSH [TSH, 3RD Generation] Stat Lab 05/26/21 18:16 Completed UA W/RFX UR CULTURE Stat Lab 05/26/21 17:08 Completed Acetaminophen 325 mg [Tylenol 325 mg] Med 05/26/21 22:17 Active 650 mg PO Q4H PRN PRN Acetaminophen 325Mg [Feverall 325 mg] Med 05/26/21 18:19 Discontinued 325 mg .ROUTE .STK-MED ONE Acetaminophen 650 mg [Feverall 650 mg] Med 05/26/21 18:18 Discontinued 650 mg .ROUTE .STK-MED ONE Acetaminophen 650 mg [Feverall 650 mg] Med 05/26/21 18:17 Discontinued 975 mg [place] STAT ONE Albuterol/Ipratropium 3ml Neb* [DUONEB 0.5-3 MG/3 ml Med 05/26/21 22:17 Discontinued Neb] 3 ml IH Q4HPRN PRN Insulin Lispro [Humalog] Med 05/26/21 22:17 Active See Dose Instructions SQ UD PRN Insulin Regular, Human [Humulin R] Med 05/26/21 21:49 Discontinued 8 unit .ROUTE .STK-MED ONE Insulin Regular, Human [Humulin R] Med 05/26/21 20:21 Discontinued 8 unit IV STAT ONE NaCl 0.9% 100 ml Mini-Bag Plus [Sodium Chloride 100ML Med 05/26/21 20:22 Discontinued MINI-BAG PLUS] 100 ml IV UD NaCl 0.9% 100 ml Mini-Bag Plus [Sodium Chloride 100ML Med 05/27/21 02:34 Discontinued MINI-BAG PLUS] 100 ml IV UD NaCl 0.9% 1000 ml + KCl 20 Meq [Sodium Chloride 0.9% W/ Med 05/26/21 22:17 Active 20 mEq KCl/LITER] 1,000 ml IV 75 mls/hr NaCl 0.9% 1000 ml [Sodium Chloride 0.9% 1000 ML] 1,000 Med 05/26/21 20:28 Discontinued ml .ROUTE UD NaCl 0.9% 1000 ml [Sodium Chloride 0.9% 1000 ML] 1,000 Med 05/26/21 23:08 Discontinued ml .ROUTE UD NaCl 0.9% 1000 ml [Sodium Chloride 0.9% 1000 ML] 1,000 Med 05/26/21 19:07 Discontinued ml IV 999 mls/hr NaCl 0.9% 500 ml [Sodium Chloride 0.9% 500 ML] 500 ml Med 05/26/21 18:26 Discontinued IV 500 mls/hr NaCl 0.9% 500 ml [Sodium Chloride 0.9% 500 ML] 500 ml Med 05/26/21 21:36 Discontinued IV UD Pantoprazole 40 mg [Protonix 40 mg IV] Med 05/27/21 10:00 Active 40 mg IV Q24H10 Piperacillin/Tazobactam 3.375G [Zosyn 3.375 GM Vial] Med 05/26/21 20:22 Discontinued 3.375 gm IV .STK-MED ONE Piperacillin/Tazobactam 3.375G [Zosyn 3.375 GM Vial] Med 05/27/21 02:29 Discontinued 3.375 gm IV .STK-MED ONE Piperacillin/Tazobactam 3.375G [Zosyn 3.375 GM Vial] 3. Med 05/27/21 00:00 Discontinued 375 gm NaCl 0.9% 100 ml Mini-Bag Plus [Sodium Chloride 100ML MINI-BAG PLUS] 100 ml IV Q6HT Piperacillin/Tazobactam 3.375G [Zosyn 3.375 GM Vial] 3. Med 05/26/21 18:25 Discontinued 375 gm NaCl 0.9% 100 ml Mini-Bag Plus [Sodium Chloride 100ML MINI-BAG PLUS] 100 ml IV STAT Piperacillin/Tazobactam [Zosyn 2.25 GM] 2.25 gm Med 05/27/21 12:00 Active NaCl 0.9% 100 ml Mini-Bag Plus [Sodium Chloride 100ML MINI-BAG PLUS] 100 ml IV Q6HT Vancomycin HCl 1 gm Inj [Vancocin 1 gm Vial] 1 gm Med 05/26/21 22:17 Discontinued NaCl 0.9% 250 ml [Sodium Chloride 0.9% 250 ML] 250 ml IV Q12H Vancomycin/Water For Inj (Peg) [Vancomycin 2 Gram/400 Med 05/26/21 18:25 Discontinued ml Bag] 2 gm in 400 ml IV STAT Vancomycin/Water For Inj (Peg) [Vancomycin 2 Gram/400 Med 05/26/21 21:49 Discontinued ml Bag] 2 gm in 400 ml IV UD OT Screen per Nursing Assess ONCE OT 05/27/21 00:10 Active PT Screen per Nursing Assess ONCE PT 05/27/21 00:10 Active Oxygen Nasal Cannula 2 lpm RT 05/26/21 22:17 Active Pulse Oximetry .continuos RT 05/27/21 05:[address] Screen per Nursing Assess ONCE ST 05/27/21 00:10 Active Patient Care Notes (Last 24 hours) 05/27/21 08:00 Nursing Note by Swati Lynn 0750-Critical procalcitonin called to Dr Wilson. No new orders received. Initialized on 05/27/21 08:00 - END OF NOTE 05/27/21 07:27 Pharmacy Note by Ralph Riley Pharmacokinetic dosing service Date: 05/27/2021 Time: 717 Objective: UTI Sepsis Patient: Elis Sauer Floor: 115 Age: 81 yo Serum creatinine: 1.71 mg/dL Height: 25.2 Inches Weight (kg): 95 Diagnosis: uti sepsis Relevant medical/social history: Cultures and sensitivities: blood pending, urine pending Other labs: sr cr = 1.71 lactic acid 3.5 bands 6 wbc 19.6 Assessment: IBW (kg): 19.12 Dosing wt(kg): 95 Estimated Creatinine clearance (ml/min): 7.9 CRCL method: Cockcroft and Gault using ibw(default). Drug selected: Vancomycin Loading dose (mg): 0 Vd (liters): 71.2 (factor used: 0.75 L/kg) Mc (hr-1): 0.011 Half life (hrs): 63.01 Recommended dose: 750 mg Interval: 48 hrs Infusion time (hrs): 1.5 Predicted peak (mcg/mL): 25.5 Predicted trough (mcg/mL): 15.29 Total body weight is being used for vancomycin dosing. Renal function is stable [ ] /unstable [XXX ] Recommendations: Give Vancomycin 750 mg q 48 hrs with an expected Cpeak of 25.5 mcg/ml and an expected Ctrough of 15.29 mcg/ml Renal dosing of other antibiotics (review renal dosing of other medications and list guidelines here): zosyn 2.25 gm q6h Thank you for the consult, will continue to follow. Signature: damian LOADING DOSE 2 GM FROM ER TROUGH: 05/28/2021 WITH AM LABS AFTER TROUGH DETERMINE STARTING DOSE AND TIME KHAUGER Initialized on 05/27/21 07:27 - END OF NOTE 05/27/21 07:00 Nursing Note by Beba Duron Critical CO2 [address] Wilson as it is improved from previous value of 14. Initialized on 05/27/21 07:00 - END OF NOTE 05/27/21 05:23 Respiratory Note by Sherif Storm CANCELLED DUO Q4PRN ORDER IT IS NOT INDICATED AT THIS TIME. Initialized on 05/27/21 05:23 - END OF NOTE 05/27/21 03:14 Nursing Note by Beba Duron Critical troponin 0.[address] Wilson per his request. Initialized on 05/27/21 03:14 - END OF NOTE 05/27/21 01:49 Nursing Note by Beba Duron Patient's daughter stated that ER staff discussed and updated all of patient's home medications. Medication list not available at this time. Medication list that was updated by ER staff printed and placed on chart for MD to look at when rounding. Initialized on 05/27/21 01:49 - END OF NOTE 05/26/21 23:56 Nursing Note by Beba Duron This nurse contacted Dr. Wilson and notified him of critical troponin 0.043, lactic 3.5. Pt has crackles bilateral posterior bases. Dr. Wilson stated to continue fluids as ordered. Reported anion gap and CO2 values. Dr. Wilson requested this nurse not call with elevated troponin even if it has increased with next blood draw. No new orders at this time. Initialized on 05/26/21 23:56 - END OF NOTE Code(s): A41.51 - SEPSIS DUE TO ESCHERICHIA COLI [E. COLI] (2) CHF (congestive heart failure), NYHA class III Current Visit: Yes Status: Acute Code(s): I50.9 - HEART FAILURE, UNSPECIFIED (3) Altered mental status Current Visit: Yes Status: Acute Qualifiers: Altered mental status type: disorientation Qualified Code(s): R41.0 - Disorientation, unspecified Code(s): R41.82 - ALTERED MENTAL STATUS, UNSPECIFIED (4) Dehydration Current Visit: Yes Status: Acute Code(s): E86.0 - DEHYDRATION (5) Chronic renal insufficiency, stage II (mild) Current Visit: No Status: Acute Code(s): N18.2 - CHRONIC KIDNEY DISEASE, STAGE 2 (MILD)
--- NOTE | 2021-05-27 08:40 | XRAY ---
Indication: Acute mental status change. Comparison: None Portable chest demonstrates minimal lingula subsegmental atelectasis/scarring. Right lung clear. Heart not enlarged with moderately arteriosclerotic aorta. Bony thorax intact with mild osteopenia and degenerative changes. Impression: Nonacute chest with chronic features.
--- NOTE | 2021-05-27 08:42 | XRAY ---
Indication: Great toe osteomyelitis. Comparison: None 2 nonweightbearing views right foot demonstrates diffuse soft tissue swelling/edema, osteopenia, small plantar heel spur, and mild scattered vascular calcifications. No acute fracture, dislocation, or osseous destructive process.
--- NOTE | 2021-05-27 08:42 | XRAY ---
Indication: Acute mental status change. Multiple falls. Multiple contiguous axial images obtained through the head without contrast. Comparison: None Age-appropriate global atrophy and minimal periventricular degenerative micro-ischemia bilaterally. No acute intracranial hemorrhage, abnormal extra-axial fluid collection, or mass effect. Fourth ventricle is midline without hydrocephalus. Bony calvarium intact. Visualized paranasal sinuses and mastoid air cells are clear. Impression: Nonacute senile brain.
--- NOTE | 2021-05-27 08:45 | XRAY ---
Indication: Acute mental status change. Multiple falls. Multiple contiguous axial images obtained through the cervical spine. Sagittal and coronal reformatted images obtained. Comparison: None Osseous structures demineralized. Axial images negative for acute fracture or spinal canal stenosis. 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 Minimal multilevel degenerative endplate spurring and mild/moderate bilateral degenerative facet hypertrophy. Sagittal and coronal reformatted images demonstrate normal alignment with mild C5-T1 degenerative disc space narrowing. No acute compression fracture, subluxation, or jumped facet. Normal appearing craniocervical junction. Visualized noncontrasted soft tissues demonstrates mild bilateral carotid calcifications lung apices are clear. Impression: 1. Osteopenia and multilevel degenerative changes. 2. Negative acute fracture/subluxation. 3. Incidental C4 bone cyst.
[2021-05-27] MEDS ORDERED: PROTONIX 40 MG IV IV SCH (10:00)
[2021-05-27] MEDS: Zosyn 2.25 GM 2.25 GM in Sodium Chloride 100ML MINI-BAG PLUS 100 ML IV SCH ×2 (11:29→18:56)
[2021-05-27] MEDS ORDERED: ZOCOR 20MG PO SCH (14:00)
[2021-05-27] MEDS ORDERED: LASIX 20 MG PO SCH (14:00)
[2021-05-27] MEDS ORDERED: TENORMIN 50 MG PO SCH (14:00)
[2021-05-27] MEDS ORDERED: Amaryl 2 MG PO SCH (14:00)
[2021-05-27] MEDS ORDERED: Cordarone 200 MG PO SCH (14:00)
[2021-05-27] MEDS ORDERED: Zestril 20 MG PO SCH (14:00)
[2021-05-27 15:00] LABS: ANISOCYTOSIS 1+; BAND 9 % (0.0-2.0); Lymphocytes 4 % (24-44); Neutrophils 87 % (36.0-66.0); Platelet Estimate NORMAL (NORMAL); Total Cells Counted 100; Toxic Granulation 2+
[2021-05-27 18:16] VITALS: BP 87/50; PULSE 64; O2SAT 100
[2021-05-27] MEDS ORDERED: NON-FORMULARY ITEM (Dapagliflozin Propanediol [Farxiga] 10 MG) PO SCH (22:00)
[2021-05-27] MEDS ORDERED: Cymbalta 30 MG Capsule PO SCH (22:00)
[2021-05-27] MEDS ORDERED: Aricept 10 MG PO SCH (22:00)
[2021-05-27] MEDS ORDERED: XARELTO 10 MG TABLET PO SCH (22:00)
[2021-05-28] MEDS ORDERED: PHARMACY DOSING REQUEST MC SCH (10:00)
[2021-05-28] MEDS ORDERED: MEDICATION INTERVENTION MC SCH (10:00)
[2021-05-28] MEDS ORDERED: VANCOCIN 1 GM VIAL*** 0.75 GM in Sodium Chloride 0.9% 150 ML 150 ML IV SCH (22:00)
== END 2021-05-27 19:35 | disposition home or self-care (01) | DRG 872 ==
LOC: ED 16:41 → MED SURG 22:10
PROVIDERS: ADMIT General Practice; ATTEND General Practice
DX: A41.51 Sepsis due to Escherichia coli [E. coli] (principal); I13.0 Hypertensive heart and chronic kidney disease with heart failure and stage 1 through stage 4 chronic kidney disease, or unspecified chronic kidney disease; R53.1 Weakness; R41.82 Altered mental status, unspecified; E11.22 Type 2 diabetes mellitus with diabetic chronic kidney disease; N18.2 Chronic kidney disease, stage 2 (mild); I50.9 Heart failure, unspecified; E86.0 Dehydration; E78.00 Pure hypercholesterolemia, unspecified; E11.621 Type 2 diabetes mellitus with foot ulcer; E11.65 Type 2 diabetes mellitus with hyperglycemia; Z79.899 Other long term (current) drug therapy; Z79.01 Long term (current) use of anticoagulants; Z20.822 Contact with and (suspected) exposure to COVID-19; R29.6 Repeated falls
CPT/HCPCS: 36000; 36415; 70450; 71045; 72125; 73620; 80053; 81001; 82550; 82947; 83036; 83605; 83735; 83880; 84145; 84443; 84484; 85025; 87040; 87077; 87086; 87186; 93005; 94762; 96374; 96375; 99285; 99291; U0003; 36600; 82375; 82803; J1815; J1817; J2543; A9270-GY; J3370

== ENCOUNTER 2022-02-25 10:31 | Inpatient (IN) | payer MEDICARE ==
[2022-02-25] MEDS ORDERED: BABY ASPIRIN 81 MG CHEW PO ONE (10:51)
[2022-02-25] MEDS ORDERED: Cardizem IV 50 MG/10 ML IV ONE ×2 (10:52→10:59)
[2022-02-25] MEDS ORDERED: CARDIZEM DRIP 100 MG/100 ML D5W 100 ML IV ONE (10:59)
[2022-02-25] MEDS ORDERED: BABY ASPIRIN 81 MG CHEW ONE (10:59)
[2022-02-25] MEDS: CARDIZEM DRIP 100 MG/100 ML D5W 100 ML IV STA ×2 (11:01→17:42)
[2022-02-25 11:04] LABS: Absolute Neutrophil Ct (ANC) 3.96 x10^3/uL (1.4-6.9); Basophil (Absolute #) 0.02 x10^3/uL (0-0.4); Eosinophil % 3.6 % (0.00-5.0); Hemoglobin 12.4 g/dL (12.0-16.0); Lymphocyte (Absolute #) 0.68 x10^3/uL (1.0-4.6); Lymphocytes % 12.1 % (24.0-44.0); Mean Cell Volume 85.3 fL (78-100); Mean Corpuscular Hemoglobin 26.4 pg (26-32); Mean Platelet Volume 10.9 fL (7.5-11.0); Monocyte (Absolute #) 0.71 x10^3/uL (0.0-1.3); Monocytes % 12.7 % (0.0-12.0); Neutrophil % 70.7 % (36.0-66.0); Platelet Count 207 x10^3/uL (150-450); Red Blood Count 4.69 x10^6/uL (4.1-5.4); Red Cell Distribution Width 17.4 % (11.5-14.0); White Blood Count 5.6 x10^3/uL (4.0-10.5)
--- NOTE | 2022-02-25 11:16 | XRAY ---
Indication: Chest pain. Comparison: May 26, 2021. Portable chest now demonstrates borderline cardiomegaly, pulmonary edema, and small right effusion/atelectasis favoring cardiac decompensation/CHF. Superimposed pneumonia not completely excluded. Bony thorax intact again with osteopenia and degenerative changes.
[2022-02-25 11:25] LABS: ALBUMIN 3.9 g/dL (3.5-5.0); ANION GAP 14.3 MEQ/L (5-15); Calcium 9.2 mg/dL (8.4-10.2); Creatinine 1 1.21 mg/dL (0.52-1.04); EST GLOMERULAR FILTRATION RATE 45.5 ML/MIN; Total Protein 7.3 g/dL (6.3-8.2)
--- NOTE | 2022-02-25 11:45 | ERPHSYRPT ---
- History of Present Illness Time Seen by Provider: 02/25/22 10:39 Historian: patient, family Exam Limitations: clinical condition Patient Subjective Stated Complaint: Pt's daughter states that the granddaughter lives with the pt and that her BP was running high and that she was c/o of chest pain Triage Nursing Assessment: Pt brought to the ER by her daughter, hypertensive, tachycardic, afib with RVR, denies pain, no difficulties with breathing, pulses normal, skin n/w/d, has rash on chest and back which daughter states is from when her sugar was out of control and it's in the process of going away, silas. LL edema which daughter states is normal for patient Physician History: 81 years old female with history of atrial fibrillation on Xarelto, hypertension, hyperlipidemia, diabetes mellitus recently out of her metoprolol for the last couple of days presented to the ER with chief complaint of substernal chest pain since morning, moderate intensity dull pressure without any significant aggravating or relieving factors and improved prior to arrival in the ER. Also reports palpitations/racing of the heart without difficulty breathing. No fever chills or cough reported. Patient lives with her granddaughter who noticed her pressure was constantly staying high in 160s with increased heart rate as well. Patient is in A. fib with RVR. Timing/Duration: today, constant, improved Activities at Onset: rest Quality: pressure Location: substernal Chest Pain Radiation: no radiation Severity of Pain-Max: moderate Severity of Pain-Current: none Modifying Factors: Improves With: nothing Associated Symptoms: palpitations, fatigue, No shortness of breath, No fever Prior Chest Pain/Cardiac Workup: no prior chest pain Nitro Today/Relief: no nitro taken today Aspirin Treatment Today: no aspirin today Allergies/Adverse Reactions: cortisone Allergy (Verified 02/25/22 10:57) Rash Home Medications: Amiodarone HCl 200 mg PO DAILY 07/01/19 [History] Donepezil HCl 23 mg PO DAILY 07/01/19 [History] Duloxetine HCl 60 mg PO HS 07/01/19 [History] Rivaroxaban [Xarelto] 15 mg PO DAILY 07/01/19 [History] atenoloL [Atenolol] 50 mg PO DAILY 07/01/19 [History] lisinopriL [Lisinopril] 40 mg PO DAILY 07/01/19 [History] Glimepiride 2 mg [Amaryl 2 MG] 2 mg PO DAILY 11/13/20 [History] Simvastatin 20Mg [Zocor 20Mg] 20 mg PO DAILY 11/13/20 [History] Dapagliflozin Propanediol [Farxiga] 10 mg PO QHS 05/26/21 [History] Furosemide 20 mg [Lasix 20 mg] 20 mg PO DAILY 05/26/21 [History] Hx Tetanus, Diphtheria Vaccination/Date Given: Yes Hx Influenza Vaccination/Date Given: Yes Hx Pneumococcal Vaccination/Date Given: No Travel Risk - International Travel Have you traveled outside of the country in past 3 weeks: No - Coronavirus Screening Are you exhibiting any of the following symptoms?: No Close contact with a COVID-19 positive Pt in past 14-21 Days: No - Vaccine Status Have you recieved a Covid-19 vaccination: Yes Price Analyst: [employer] - Vaccination Dates Date of 2cond Vaccination (if applicable): 12/2020 - Review of Systems Constitutional: No Symptoms Eyes: No Symptoms Ears, Nose, & Throat: No Symptoms Respiratory: No Symptoms Cardiac: Chest Pain, Palpitations Abdominal/Gastrointestinal: No Symptoms Genitourinary Symptoms: No Symptoms Musculoskeletal: No Symptoms Skin: No Symptoms Neurological: No Symptoms Psychological: No Symptoms Endocrine: No Symptoms Hematologic/Lymphatic: No Symptoms - Past Medical History Pertinent Past Medical History: Yes Neurological History: Dementia ENT History: Cataracts Cardiac History: Arrhythmia, High Cholesterol, Hypertension Respiratory History: No Pertinent History Endocrine Medical History: Diabetes Type II Musculoskeletal History: Other GI Medical History: No Pertinent History History: Renal Disease Psycho-Social History: Anxiety, Depression Female Reproductive Disorders: No Pertinent History Other Medical History: OSTEOPENIA, CKD STAGE 3, POLYNEUROPATHY. FX L TIBIA, FX LEFT ELBOW A CHILD. - Past Surgical History Past Surgical History: Yes Neuro Surgical History: No Pertinent History Cardiac: No Pertinent History Respiratory: No Pertinent History Gastrointestinal: Cholecystectomy Genitourinary: No Pertinent History Musculoskeletal: Orthopedic Surgery Female Surgical History: Hysterectomy Other Surgical History: L tibia plate and screws - Social History Smoking Status: Never smoker Exposure to second hand smoke: No Drug Use: none Patient Lives Alone: No - Nursing Vital Signs Nursing Vital Signs: Initial Vital Signs Pulse Rate 153 H 02/25/22 10:37 Respiratory Rate 24 02/25/22 10:37 Blood Pressure 149/116 02/25/22 10:37 O2 Sat by Pulse Oximetry 97 02/25/22 10:37 Pain Scale Pain Intensity 0 - Physical Exam General Appearance: no apparent distress, alert Eye Exam: PERRL/EOMI Ears, Nose, Throat Exam: normal ENT inspection, TMs normal, pharynx normal, moist mucous membranes Neck Exam: normal inspection, non-tender, supple, full range of motion Respiratory Exam: normal breath sounds, diminished breath sounds Cardiovascular Exam: normal heart sounds, tachycardia, irregular Back Exam: normal inspection, normal range of motion Extremity Exam: normal inspection, normal range of motion Neurologic Exam: alert, oriented x 3, cooperative Skin Exam: normal color SpO2 Interpretation: normal SpO2: 97 O2 Delivery: Room Air - Course EKG Interpreted by Me: RATE (145), A-fib, NORMAL AXIS, Q-wave (Inferior leads), Other (Nonspecific T wave changes) Ordered Tests: Active Orders 24 hr Category Date Time Status Chief Marketing Officer STAT Care 02/25/22 10:51 Active EKG-ER Only STAT Care 02/25/22 10:51 Active IV Insertion STAT Care 02/25/22 10:51 Active House Regular Diet Diet 02/25/22 Dinner Active CHEST 1 VIEW (PORTABLE) Stat Exams 02/25/22 11:04 Completed CBC W DIFF Stat Lab 02/25/22 10:40 Completed CMP Stat Lab 02/25/22 10:40 Completed NT PRO BNP Stat Lab 02/25/22 10:40 Completed TROPONIN Q3H Lab 02/25/22 10:40 Completed TROPONIN Q3H Lab 02/25/22 14:00 Ordered TROPONIN Q3H Lab 02/25/22 17:00 Ordered TROPONIN Q3H Lab 02/25/22 20:00 Ordered TROPONIN Q3H Lab 02/25/22 23:00 Ordered Medication Summary Generic Name Dose Route Start Last Admin Trade Name Freq PRN Reason Stop Dose Admin Diltiazem HCl 100 mls @ 5 mls/hr 02/25/22 10:51 02/25/22 11:01 Cardizem Drip 100 Mg/100 Ml D5w IV 02/26/22 06:50 5 mg/hr .Q20H STA 5 mls/hr Administration Protocol 5 MG/HR Discontinued Medications Generic Name Dose Route Start Last Admin Trade Name Freq PRN Reason Stop Dose Admin Aspirin 324 mg 02/25/22 10:51 02/25/22 11:00 Aspirin 81 Mg Tab.Chew PO 02/25/22 10:52 324 mg STAT ONE Administration Aspirin Confirm 02/25/22 10:59 Aspirin 81 Mg Tab.Chew Administered 02/25/22 11:00 Dose 324 mg .ROUTE .STK-MED ONE Diltiazem HCl 10 mg 02/25/22 10:52 02/25/22 11:00 Diltiazem Hcl Iv 5 Mg/Ml Vial IV 02/25/22 10:53 10 mg STAT ONE Administration Diltiazem HCl Confirm 02/25/22 10:59 Diltiazem Hcl Iv 5 Mg/Ml Vial Administered 02/25/22 11:00 Dose 50 mg IV .STK-MED ONE Furosemide 40 mg 02/25/22 12:08 02/25/22 12:15 Furosemide 40 Mg/4 Ml Vial IV 02/25/22 12:09 40 mg STAT ONE Administration Furosemide Confirm 02/25/22 12:14 Furosemide 40 Mg/4 Ml Vial Administered 02/25/22 12:15 Dose 40 mg .ROUTE .STK-MED ONE Diltiazem HCl Confirm 02/25/22 10:59 Cardizem Drip 100 Mg/100 Ml D5w Administered 02/25/22 11:00 Dose 100 mls @ ud IV .STK-MED ONE Lorazepam Confirm 02/25/22 12:32 Lorazepam 2 Mg/1 Ml 2 Mg Vial Administered 02/25/22 12:33 Dose 2 mg .ROUTE .STK-MED ONE Lorazepam 1 mg 02/25/22 12:38 02/25/22 12:40 Lorazepam 2 Mg/1 Ml 2 Mg Vial IV 02/25/22 12:39 1 mg STAT ONE Administration Lab/Rad Data: Laboratory Result Diagrams 02/25/22 10:40 02/25/22 10:40 Laboratory Results 02/25/22 02/25/22 02/25/22 Range/Units 11:20 10:40 10:40 WBC (4.0-10.5) x10^3/uL RBC (4.1-5.4) x10^6/uL Hgb (12.0-16.0) g/dL Hct (35-47) % MCV (78-100) fL MCH (26-32) pg MCHC (32-36) g/dL RDW (11.5-14.0) % Plt Count (150-450) x10^3/uL MPV (7.5-11.0) fL Gran % (36.0-66.0) % Immature Gran % (Auto) (0.00-0.4) % Nucleat RBC Rel Count (0.00-0.1) % Eos # (Auto) (0-0.5) x10^3/uL Immature Gran # (Auto) (0.00-0.03) x10^3u/L Absolute Lymphs (auto) (1.0-4.6) x10^3/uL Absolute Monos (auto) (0.0-1.3) x10^3/uL Absolute Nucleated RBC (0.00-0.01) x10^3u/L Lymphocytes % (24.0-44.0) % Monocytes % (0.0-12.0) % Eosinophils % (0.00-5.0) % Basophils % (0.0-0.4) % Absolute Granulocytes (1.4-6.9) x10^3/uL Basophils # (0-0.4) x10^3/uL Sodium 137 (137-145) mmol/L Potassium 4.0 (3.5-5.1) mmol/L Chloride 105 (98-107) mmol/L Carbon Dioxide 22 (22-30) mmol/L Anion Gap 14.3 (5-15) MEQ/L BUN 16 (7-17) mg/dL Creatinine 1.21 H (0.52-1.04) mg/dL Estimated GFR 45.5 ML/MIN Glucose 232 H (74-106) mg/dL Calcium 9.2 (8.4-10.2) mg/dL Total Bilirubin 1.00 (0.2-1.3) mg/dL AST 17 (14-36) U/L ALT 9 (0-35) U/L Alkaline Phosphatase 102 (38-126) U/L Troponin I < 0.012 (0.000-0.034) ng/mL NT-Pro-B Natriuret Pep 5430 H (0-1800) pg/mL Serum Total Protein 7.3 (6.3-8.2) g/dL Albumin 3.9 (3.5-5.0) g/dL Influenza Type A Ag NEGATIVE (NEGATIVE) Influenza Type B Ag NEGATIVE (NEGATIVE) RSV (PCR) NEGATIVE (Negative) SARS-CoV-2 (PCR) NEGATIVE (NEGATIVE) 02/25/22 Range/Units 10:40 WBC 5.6 (4.0-10.5) x10^3/uL RBC 4.69 (4.1-5.4) x10^6/uL Hgb 12.4 (12.0-16.0) g/dL Hct 40.0 (35-47) % MCV 85.3 (78-100) fL MCH 26.4 (26-32) pg MCHC 31.0 L (32-36) g/dL RDW 17.4 H (11.5-14.0) % Plt Count 207 (150-450) x10^3/uL MPV 10.9 (7.5-11.0) fL Gran % 70.7 H (36.0-66.0) % Immature Gran % (Auto) 0.5 H (0.00-0.4) % Nucleat RBC Rel Count 0.0 (0.00-0.1) % Eos # (Auto) 0.20 (0-0.5) x10^3/uL Immature Gran # (Auto) 0.03 (0.00-0.03) x10^3u/L Absolute Lymphs (auto) 0.68 L (1.0-4.6) x10^3/uL Absolute Monos (auto) 0.71 (0.0-1.3) x10^3/uL Absolute Nucleated RBC 0.00 (0.00-0.01) x10^3u/L Lymphocytes % 12.1 L (24.0-44.0) % Monocytes % 12.7 H (0.0-12.0) % Eosinophils % 3.6 (0.00-5.0) % Basophils % 0.4 (0.0-0.4) % Absolute Granulocytes 3.96 (1.4-6.9) x10^3/uL Basophils # 0.02 (0-0.4) x10^3/uL Sodium (137-145) mmol/L Potassium (3.5-5.1) mmol/L Chloride (98-107) mmol/L Carbon Dioxide (22-30) mmol/L Anion Gap (5-15) MEQ/L BUN (7-17) mg/dL Creatinine (0.52-1.04) mg/dL Estimated GFR ML/MIN Glucose (74-106) mg/dL Calcium (8.4-10.2) mg/dL Total Bilirubin (0.2-1.3) mg/dL AST (14-36) U/L ALT (0-35) U/L Alkaline Phosphatase (38-126) U/L Troponin I (0.000-0.034) ng/mL NT-Pro-B Natriuret Pep (0-1800) pg/mL Serum Total Protein (6.3-8.2) g/dL Albumin (3.5-5.0) g/dL Influenza Type A Ag (NEGATIVE) Influenza Type B Ag (NEGATIVE) RSV (PCR) (Negative) SARS-CoV-2 (PCR) (NEGATIVE) - Progress Progress: improved, re-examined Air Movement: fair Progress Note: 02/25/22 12:59 81 years old is evaluated for chest pain with palpitations. Chest pain resolved prior to arrival in the ER. EKG showed A. fib with RVR without any ST elevations. She is started on Cardizem and heart rate is improving to 110s and 120s. Chest x-ray showed some cardiomegaly with congestion and given a dose of Lasix. Has normal white count, stable renal functions and negative initial troponins. Patient is anticoagulated with Xarelto. Discussed with Dr. Vences and patient is being admitted. Plan discussed with patient and family, patient is initially reluctant to be admitted but thoroughly counseled and is in agreement with staying in the hospital. Antibiotics given: No Discussed with : [place] Will see patient in: hospital (observation) Counseled pt/family regarding: lab results, diagnosis, rad results - Departure Departure Disposition: Observation Clinical Impression: Atrial fibrillation with RVR, CHF exacerbation Condition: Stable Critical Care Time: No Referrals: MYRON JOHNSON, DEVELOPMENT ASSOCIATE [Primary Care Provider] - Follow up/PCP as directed Instructions: Heart Failure
[2022-02-25 11:58] LABS: INFLUENZA A NEGATIVE (NEGATIVE); INFLUENZA B NEGATIVE (NEGATIVE); RESPIRATORY SYNCTIAL VIRUS NEGATIVE (Negative); SARS-CoV-2 Xpert Express NEGATIVE (NEGATIVE)
[2022-02-25] MEDS ORDERED: Lasix 40 MG/4 ML IV ONE (12:08)
[2022-02-25] MEDS ORDERED: Lasix 40 MG/4 ML ONE (12:14)
[2022-02-25] MEDS ORDERED: Ativan 2 MG/1 ML VIAL ONE (12:32)
[2022-02-25] MEDS ORDERED: Ativan 2 MG/1 ML VIAL IV ONE (12:38)
[2022-02-25] MEDS ORDERED: TYLENOL 325 MG PO PRN (13:11)
[2022-02-25] MEDS ORDERED: Zofran 4 MG/2 ML VIAL IV PRN (13:11)
[2022-02-25] MEDS ORDERED: DUONEB 0.5-3 MG/3 ml Neb IH PRN (13:11)
[2022-02-25 14:52] LABS: Bacteria RARE /HPF (NEGATIVE); Epithelial Cells RARE /HPF (FEW); WBC 0-2 /HPF (0-5)
[2022-02-25 14:54] LABS: Appearance CLEAR (CLEAR); Bilirubin NEGATIVE (NEGATIVE); Glucose 250 mg/dL (NEGATIVE); Ketones NEGATIVE (NEGATIVE); Nitrite NEGATIVE (NEGATIVE); Protein,Urine Dip 30 (Negative); RBC TRACE-INTACT Ery/ul (0-5); Urine Cultured Indicated? NO; Urobilinogen 0.2 mg/dL (0-1)
[2022-02-25 14:55] LABS: Dipstick done @ ? MAIN LAB
[2022-02-25] MEDS: Ativan 2 MG/1 ML VIAL IV PRN ×2 (17:02→21:28)
[2022-02-25] MEDS ORDERED: MEDICATION INTERVENTION MC SCH ×3 (17:30)
[2022-02-25] MEDS: Aricept 10 MG PO SCH (21:23)
[2022-02-25] MEDS: AMITRIPTYLINE 25 MG TABLET PO SCH (21:23)
[2022-02-25] MEDS: HUMALOG SQ PRN (21:42)
[2022-02-25] MEDS ORDERED: DONEPEZIL HCL 23 MG PO SCH (22:00)
[2022-02-26] MEDS: CARDIZEM DRIP 100 MG/100 ML D5W 100 ML IV STA (01:51)
[2022-02-26 04:39] LABS: Absolute Neutrophil Ct (ANC) 4.58 x10^3/uL (1.4-6.9); Basophil (Absolute #) 0.03 x10^3/uL (0-0.4); Eosinophil % 3.5 % (0.00-5.0); Eosinophil (Absolute #) 0.22 x10^3/uL (0-0.5); Hematocrit 35.4 % (35-47); Hemoglobin 11.2 g/dL (12.0-16.0); Lymphocyte (Absolute #) 0.63 x10^3/uL (1.0-4.6); Mean Cell Volume 83.5 fL (78-100); Mean Corpuscular Hemoglobin 26.4 pg (26-32); Mean Corpuscular Hgb Concent. 31.6 g/dL (32-36); Mean Platelet Volume 11.2 fL (7.5-11.0); Monocyte (Absolute #) 0.77 x10^3/uL (0.0-1.3); Monocytes % 12.3 % (0.0-12.0); Neutrophil % 73.1 % (36.0-66.0); Platelet Count 200 x10^3/uL (150-450); Red Blood Count 4.24 x10^6/uL (4.1-5.4); Red Cell Distribution Width 17.4 % (11.5-14.0); White Blood Count 6.3 x10^3/uL (4.0-10.5)
[2022-02-26 05:32] LABS: ALBUMIN 3.2 g/dL (3.5-5.0); BILIRUBIN,TOTAL 0.8 mg/dL (0.2-1.3); Calcium 8.5 mg/dL (8.4-10.2); Creatinine 1 1.27 mg/dL (0.52-1.04); Potassium 3.4 mmol/L (3.5-5.1); Total Protein 6.3 g/dL (6.3-8.2)
[2022-02-26] MEDS ORDERED: NON-FORMULARY ITEM (Liothyronine Sodium [Liothyronine Sodium] 5 MCG Tablet) PO SCH (06:00)
[2022-02-26] MEDS: SYNTHROID 100 MCG PO SCH (06:30)
[2022-02-26] MEDS ORDERED: CARDIZEM DRIP 100 MG/100 ML D5W 100 ML IV PRN (06:58)
[2022-02-26] MEDS: TENORMIN 50 MG PO SCH (08:36)
[2022-02-26] MEDS: HUMALOG SQ PRN (08:37)
--- NOTE | 2022-02-26 09:12 | XRAY ---
Indication: Atrial fibrillation. Comparison: One day earlier. Portable chest unchanged again demonstrating borderline cardiomegaly, mild pulmonary edema, and small bibasilar effusion/atelectasis again favoring cardiac decompensation/CHF. Superimposed pneumonia not completely excluded. No new cardiopulmonary abnormalities.
[2022-02-26] MEDS: Ativan 2 MG/1 ML VIAL IV PRN ×2 (09:51→13:57)
[2022-02-26] MEDS: Cymbalta 30 MG Capsule PO SCH (09:54)
[2022-02-26] MEDS: Glucophage 500 MG PO SCH ×2 (09:54→17:12)
[2022-02-26] MEDS: Klor Con PO SCH (09:54)
[2022-02-26] MEDS: Amaryl 2 MG PO SCH (09:55)
[2022-02-26] MEDS: ZOCOR 20MG PO SCH (09:55)
[2022-02-26] MEDS: PROTONIX 40 MG IV IV SCH (09:55)
[2022-02-26] MEDS ORDERED: LASIX 20 MG PO SCH (10:00)
[2022-02-26] MEDS ORDERED: NON-FORMULARY ITEM (Potassium Chloride [Klor-Con 10] 10 MEQ Tablet.Er) PO SCH (10:00)
[2022-02-26] MEDS ORDERED: NON-FORMULARY ITEM (Dapagliflozin Propanediol [Farxiga] 10 MG Tablet) PO SCH (10:00)
[2022-02-26] MEDS ORDERED: NON-FORMULARY ITEM (Finerenone [Kerendia] 20 MG Tablet) PO SCH (10:00)
[2022-02-26] MEDS ORDERED: NON-FORMULARY ITEM (Duloxetine Hcl [Duloxetine Hcl] 60 MG Capsule.Dr) PO SCH (10:00)
[2022-02-26] MEDS: ROCEPHIN 1 Gm-D5w 50 ml Bag** 1 G/50 ML IVPB IV SCH (10:18)
[2022-02-26] MEDS: Zithromax 500 MG/ 250 ML NaCl Premix 500 MG/250 ML IVPB IV SCH (11:07)
[2022-02-26] MEDS ORDERED: NON-FORMULARY ITEM (Rivaroxaban [Xarelto] 15 MG Tablet) PO SCH (17:00)
[2022-02-26] MEDS: XARELTO 10 MG TABLET PO SCH (17:12)
[2022-02-26] MEDS: Aricept 10 MG PO SCH (20:49)
[2022-02-26] MEDS: AMITRIPTYLINE 25 MG TABLET PO SCH (20:49)
[2022-02-27] MEDS: Ativan 2 MG/1 ML VIAL IV PRN (01:36)
[2022-02-27] MEDS: SYNTHROID 100 MCG PO SCH (06:05)
[2022-02-27 06:17] LABS: Absolute Neutrophil Ct (ANC) 6.51 x10^3/uL (1.4-6.9); Basophil (Absolute #) 0.04 x10^3/uL (0-0.4); Eosinophil % 3.6 % (0.00-5.0); Hematocrit 38.6 % (35-47); Hemoglobin 11.7 g/dL (12.0-16.0); Lymphocyte (Absolute #) 0.79 x10^3/uL (1.0-4.6); Lymphocytes % 9.4 % (24.0-44.0); Mean Corpuscular Hemoglobin 26.1 pg (26-32); Mean Corpuscular Hgb Concent. 30.3 g/dL (32-36); Mean Platelet Volume 11.2 fL (7.5-11.0); Monocyte (Absolute #) 0.74 x10^3/uL (0.0-1.3); Monocytes % 8.8 % (0.0-12.0); Platelet Count 208 x10^3/uL (150-450); Red Blood Count 4.49 x10^6/uL (4.1-5.4); Red Cell Distribution Width 17.1 % (11.5-14.0); White Blood Count 8.4 x10^3/uL (4.0-10.5)
[2022-02-27 06:33] LABS: ANION GAP 14.8 MEQ/L (5-15); Calcium 8.6 mg/dL (8.4-10.2); Creatinine 1 1.49 mg/dL (0.52-1.04); EST GLOMERULAR FILTRATION RATE 35.8 ML/MIN; Potassium 4.1 mmol/L (3.5-5.1)
--- NOTE | 2022-02-27 07:36 | XRAY ---
Indication: Atrial fibrillation. Comparison: One day earlier. Portable chest continues to demonstrates borderline cardiomegaly, mild pulmonary edema, and small bibasilar effusions with minimal worsening left effusion again favoring cardiac decompensation/CHF. Superimposed pneumonia not completely excluded. No new cardiopulmonary abnormalities.
[2022-02-27] MEDS: Glucophage 500 MG PO SCH (08:43)
[2022-02-27] MEDS: Amaryl 2 MG PO SCH (08:43)
[2022-02-27] MEDS ORDERED: Lasix 40 MG/4 ML IV SCH (10:00)
[2022-02-27] MEDS: ROCEPHIN 1 Gm-D5w 50 ml Bag** 1 G/50 ML IVPB IV SCH (10:59)
[2022-02-27] MEDS: Cymbalta 30 MG Capsule PO SCH (11:00)
[2022-02-27] MEDS: PROTONIX 40 MG IV IV SCH (11:00)
[2022-02-27] MEDS: ZOCOR 20MG PO SCH (11:00)
[2022-02-27] MEDS: Klor Con PO SCH (11:00)
[2022-02-27] MEDS: TENORMIN 50 MG PO SCH (11:02)
[2022-02-27] MEDS: Zithromax 500 MG/ 250 ML NaCl Premix 500 MG/250 ML IVPB IV SCH (12:00)
--- NOTE | 2022-02-27 16:50 | PCM.NOTE ---
Date and Time: 02/27/22 1644 Subjective Assessment: Pt has been somnolent. Yesterday was up to chair but didn't do well, required heavy 2-assist to get back to bed, was light headed. She apparently was on amiodarone until she had sepsis. She saw Dr. Cotton afterward and was doing ok and the amiodarone was never restarted. Had an echo 2 wks ago and has an appt in approx 1 mo. Pt is on day #2 rocephin and zithromax, added for possibility of pneumonia. Pt's daughter is present who said at home although she definitely has dementia, she is active with her walker. - Review of Systems Constitutional: No Fever Abdominal/Gastrointestinal: No Vomiting Objective Exam General Appearance: no apparent distress, obese Neurologic Exam: cooperative, other (somnolent, but wakes briefly to voice and is cooperative.) Skin Exam: normal color, warm, dry, No rash Eye Exam: eyes nml inspection Ears, Nose, Throat Exam: moist mucous membranes Neck Exam: normal inspection Respiratory Exam: lungs clear, diminished breath sounds, No crackles/rales, No rhonchi, No wheezing Cardiovascular Exam: regular rate/rhythm, normal heart sounds, No murmur Gastrointestinal/Abdomen Exam: soft, normal bowel sounds, No tenderness, No distention, No mass, No guarding, No rebound Extremity Exam: No swelling (no pitting edema LE bilat) Back Exam: normal inspection, No rash OBJECTIVE DATA Vital Signs: Vital Signs - 24 hr Temp Pulse Resp BP BP BP Pulse Ox 02/27/22 15:22 98.4 F 99 H 22 122/65 95 02/27/22 12:00 97.0 F 78 18 141/73 96 02/27/22 11:02 78 141/73 02/27/22 08:00 97.2 F 100 H 23 149/94 95 02/27/22 04:00 97.5 F 102 H 19 126/87 94 L 02/27/22 01:36 116 H 28 H 02/26/22 23:30 97.7 F 115 H 21 130/87 96 02/26/22 19:22 97.1 F 106 H 20 109/89 98 Pain Assessment - Last Documented Pain Intensity 0 Intake and Output: Intake & Output 02/25/22 02/26/22 02/27/22 06/05/22 11:59 11:59 11:59 11:59 Intake Total 376 680 Output Total 3550 425 400 Balance -3174 255 -400 Weight 87 kg 87.5 kg 85.7 kg Lab Results: Lab Results-Last 24 Hours 02/26/22 02/27/22 02/27/22 Range/Units 20:48 05:53 05:53 WBC 8.4 (4.0-10.5) x10^3/uL RBC 4.49 (4.1-5.4) x10^6/uL Hgb 11.7 L (12.0-16.0) g/dL Hct 38.6 (35-47) % MCV 86.0 (78-100) fL MCH 26.1 (26-32) pg MCHC 30.3 L (32-36) g/dL RDW 17.1 H (11.5-14.0) % Plt Count 208 (150-450) x10^3/uL MPV 11.2 H (7.5-11.0) fL Gran % 77.0 H (36.0-66.0) % Immature Gran % (Auto) 0.7 H (0.00-0.4) % Nucleat RBC Rel Count 0.0 (0.00-0.1) % Eos # (Auto) 0.30 (0-0.5) x10^3/uL Immature Gran # (Auto) 0.06 H (0.00-0.03) x10^3u/L Absolute Lymphs (auto) 0.79 L (1.0-4.6) x10^3/uL Absolute Monos (auto) 0.74 (0.0-1.3) x10^3/uL Absolute Nucleated RBC 0.00 (0.00-0.01) x10^3u/L Lymphocytes % 9.4 L (24.0-44.0) % Monocytes % 8.8 (0.0-12.0) % Eosinophils % 3.6 (0.00-5.0) % Basophils % 0.5 (0.0-0.4) % Absolute Granulocytes 6.51 (1.4-6.9) x10^3/uL Basophils # 0.04 (0-0.4) x10^3/uL Sodium 135 L (137-145) mmol/L Potassium 4.1 D (3.5-5.1) mmol/L Chloride 102 (98-107) mmol/L Carbon Dioxide 23 (22-30) mmol/L Anion Gap 14.8 (5-15) MEQ/L BUN 24 H (7-17) mg/dL Creatinine 1.49 H (0.52-1.04) mg/dL Estimated GFR 35.8 ML/MIN Glucose 171 H (74-106) mg/dL POC Glucometer 126 H (74 to 106) mg/dL Calcium 8.6 (8.4-10.2) mg/dL 02/27/22 02/27/22 Range/Units 07:00 11:12 WBC (4.0-10.5) x10^3/uL RBC (4.1-5.4) x10^6/uL Hgb (12.0-16.0) g/dL Hct (35-47) % MCV (78-100) fL MCH (26-32) pg MCHC (32-36) g/dL RDW (11.5-14.0) % Plt Count (150-450) x10^3/uL MPV (7.5-11.0) fL Gran % (36.0-66.0) % Immature Gran % (Auto) (0.00-0.4) % Nucleat RBC Rel Count (0.00-0.1) % Eos # (Auto) (0-0.5) x10^3/uL Immature Gran # (Auto) (0.00-0.03) x10^3u/L Absolute Lymphs (auto) (1.0-4.6) x10^3/uL Absolute Monos (auto) (0.0-1.3) x10^3/uL Absolute Nucleated RBC (0.00-0.01) x10^3u/L Lymphocytes % (24.0-44.0) % Monocytes % (0.0-12.0) % Eosinophils % (0.00-5.0) % Basophils % (0.0-0.4) % Absolute Granulocytes (1.4-6.9) x10^3/uL Basophils # (0-0.4) x10^3/uL Sodium (137-145) mmol/L Potassium (3.5-5.1) mmol/L Chloride (98-107) mmol/L Carbon Dioxide (22-30) mmol/L Anion Gap (5-15) MEQ/L BUN (7-17) mg/dL Creatinine (0.52-1.04) mg/dL Estimated GFR ML/MIN Glucose (74-106) mg/dL POC Glucometer 186 H 199 H (74 to 106) mg/dL Calcium (8.4-10.2) mg/dL Radiology Exams: Radiology Procedures Category Date Time Status CHEST 1 VIEW (PORTABLE) DAILY Exams 02/27/22 08:00 Completed CHEST 1 VIEW (PORTABLE) Urgent Exams 02/26/22 09:00 Completed Assessment/Plan (1) Pneumonia Current Visit: Yes Status: Acute Qualifiers: Pneumonia type: due to unspecified organism Laterality: bilateral Lung location: lower lobe of lung Qualified Code(s): J18.9 - Pneumonia, unspecified organism Assessment & Plan: On rocephin/zithromax day #2. Code(s): J18.9 - PNEUMONIA, UNSPECIFIED ORGANISM (2) CHF exacerbation Current Visit: Yes Status: Acute Code(s): I50.9 - HEART FAILURE, UNSPECIFIED (3) Atrial fibrillation with RVR Current Visit: Yes Status: Acute Code(s): I48.91 - UNSPECIFIED ATRIAL FIBRILLATION (4) Hypertension Current Visit: Yes Status: Chronic Qualifiers: Hypertension type: primary hypertension Qualified Code(s): I10 - Essential (primary) hypertension Code(s): I10 - ESSENTIAL (PRIMARY) HYPERTENSION (5) Hyperlipidemia Current Visit: Yes Status: Chronic Code(s): E78.5 - HYPERLIPIDEMIA, UNSPECIFIED (6) Diabetes mellitus type II, controlled Current Visit: Yes Status: Chronic Qualifiers: Diabetes mellitus halfway insulin use: without tank terminal gauger use Diabetes mellitus complication status: with kidney complications Diabetes mellitus complication detail: with chronic kidney disease Chronic kidney disease stage: stage 3 (moderate) Qualified Code(s): E11.22 - Type 2 diabetes mellitus with diabetic chronic kidney disease; N18.30 - Chronic kidney disease, stage 3 unspecified Code(s): E11.9 - TYPE 2 DIABETES MELLITUS WITHOUT COMPLICATIONS (7) Chronic renal insufficiency Current Visit: Yes Status: Chronic Qualifiers: Chronic kidney disease stage: stage 3 (moderate) Code(s): N18.9 - CHRONIC KIDNEY DISEASE, UNSPECIFIED (8) Dementia Current Visit: Yes Status: Acute Qualifiers: Dementia type: Alzheimer's Alzheimer's disease onset: unspecified onset Dementia behavioral disturbance: without behavioral disturbance Qualified Code(s): G30.9 - Alzheimer's disease, unspecified; F02.80 - Dementia in other diseases classified elsewhere without behavioral disturbance Assessment & Plan: With worsened mental status due to acute medical issues. Code(s): F03.90 - UNSPECIFIED DEMENTIA WITHOUT BEHAVIORAL DISTURBANCE
[2022-02-27] MEDS: XARELTO 10 MG TABLET PO SCH (19:11)
[2022-02-27] MEDS: Aricept 10 MG PO SCH (22:05)
[2022-02-27] MEDS: AMITRIPTYLINE 25 MG TABLET PO SCH (22:05)
[2022-02-28] MEDS: SYNTHROID 100 MCG PO SCH (05:41)
[2022-02-28 06:01] LABS: Absolute Neutrophil Ct (ANC) 3.14 x10^3/uL (1.4-6.9); Basophil (Absolute #) 0.03 x10^3/uL (0-0.4); Eosinophil % 3.8 % (0.00-5.0); Eosinophil (Absolute #) 0.19 x10^3/uL (0-0.5); Hematocrit 39.7 % (35-47); Hemoglobin 12.3 g/dL (12.0-16.0); Lymphocyte (Absolute #) 0.94 x10^3/uL (1.0-4.6); Lymphocytes % 18.7 % (24.0-44.0); Mean Cell Volume 85.6 fL (78-100); Mean Corpuscular Hemoglobin 26.5 pg (26-32); Mean Platelet Volume 10.9 fL (7.5-11.0); Monocyte (Absolute #) 0.69 x10^3/uL (0.0-1.3); Monocytes % 13.7 % (0.0-12.0); Neutrophil % 62.4 % (36.0-66.0); Platelet Count 248 x10^3/uL (150-450); Red Blood Count 4.64 x10^6/uL (4.1-5.4); Red Cell Distribution Width 17.2 % (11.5-14.0)
[2022-02-28 06:27] LABS: Calcium 8.7 mg/dL (8.4-10.2); Creatinine 1 1.36 mg/dL (0.52-1.04); EST GLOMERULAR FILTRATION RATE 39.8 ML/MIN; Potassium 4.4 mmol/L (3.5-5.1)
--- NOTE | 2022-02-28 07:41 | PCM.NOTE ---
Date and Time: 02/28/22736 Subjective Assessment: Pt much more awake today - I startled her when I spoke to her, woke her up, and her HR went to 140s. Per RN has been sleeping well most of the night. Was apparently more disoriented last night, then family came in and she was somnolent (had not received ativan). HR in 90s-low 120s mostly. Pt thinks she is "at home" and does not know the date (says a date in 1938 and doesn't know what that is). She is conversant and pleasant. - Review of Systems Constitutional: No Fever Abdominal/Gastrointestinal: No Vomiting Objective Exam General Appearance: no apparent distress, alert Neurologic Exam: cooperative, disoriented Skin Exam: normal color, warm, dry, No rash Eye Exam: eyes nml inspection Ears, Nose, Throat Exam: moist mucous membranes Neck Exam: normal inspection Respiratory Exam: normal breath sounds, lungs clear, No crackles/rales, No rhonchi, No wheezing Cardiovascular Exam: tachycardia, irregular (irregularly irregular), No murmur Gastrointestinal/Abdomen Exam: soft, normal bowel sounds, No tenderness, No distention, No mass, No guarding, No rebound Extremity Exam: normal inspection, No pedal edema, No swelling Back Exam: normal inspection, No rash OBJECTIVE DATA Vital Signs: Vital Signs - 24 hr Temp Pulse Resp BP BP Pulse Ox 02/28/22 04:10 97.1 F 121 H 17 103/71 94 L 02/27/22 23:40 97.9 F 99 H 21 134/76 95 02/27/22 19:48 97.9 F 101 H 19 134/95 95 02/27/22 15:22 98.4 F 99 H 22 122/65 95 02/27/22 12:00 97.0 F 78 18 141/73 96 02/27/22 11:02 78 141/73 02/27/22 08:00 97.2 F 100 H 23 149/94 95 Pain Assessment - Last Documented Pain Intensity 0 Intake and Output: Intake & Output 02/25/22 02/26/22 02/27/22 02/28/22 11:59 11:59 11:59 11:59 Intake Total 554 335 484 Output Total 9993 558 392 Balance -3174 255 -266 Weight 87 kg 87.5 kg 85.7 kg 83.8 kg Lab Results: Lab Results-Last 24 Hours 02/27/22 02/27/22 02/27/22 Range/Units 11:12 16:48 20:46 WBC (4.0-10.5) x10^3/uL RBC (4.1-5.4) x10^6/uL Hgb (12.0-16.0) g/dL Hct (35-47) % MCV (78-100) fL MCH (26-32) pg MCHC (32-36) g/dL RDW (11.5-14.0) % Plt Count (150-450) x10^3/uL MPV (7.5-11.0) fL Gran % (36.0-66.0) % Immature Gran % (Auto) (0.00-0.4) % Nucleat RBC Rel Count (0.00-0.1) % Eos # (Auto) (0-0.5) x10^3/uL Immature Gran # (Auto) (0.00-0.03) x10^3u/L Absolute Lymphs (auto) (1.0-4.6) x10^3/uL Absolute Monos (auto) (0.0-1.3) x10^3/uL Absolute Nucleated RBC (0.00-0.01) x10^3u/L Lymphocytes % (24.0-44.0) % Monocytes % (0.0-12.0) % Eosinophils % (0.00-5.0) % Basophils % (0.0-0.4) % Absolute Granulocytes (1.4-6.9) x10^3/uL Basophils # (0-0.4) x10^3/uL Sodium (137-145) mmol/L Potassium (3.5-5.1) mmol/L Chloride (98-107) mmol/L Carbon Dioxide (22-30) mmol/L Anion Gap (5-15) MEQ/L BUN (7-17) mg/dL Creatinine (0.52-1.04) mg/dL Estimated GFR ML/MIN Glucose (74-106) mg/dL POC Glucometer 199 H 194 H 149 H (74 to 106) mg/dL Calcium (8.4-10.2) mg/dL 02/28/22 02/28/22 Range/Units 05:45 05:45 WBC 5.0 (4.0-10.5) x10^3/uL RBC 4.64 (4.1-5.4) x10^6/uL Hgb 12.3 (12.0-16.0) g/dL Hct 39.7 (35-47) % MCV 85.6 (78-100) fL MCH 26.5 (26-32) pg MCHC 31.0 L (32-36) g/dL RDW 17.2 H (11.5-14.0) % Plt Count 248 (150-450) x10^3/uL MPV 10.9 (7.5-11.0) fL Gran % 62.4 (36.0-66.0) % Immature Gran % (Auto) 0.8 H (0.00-0.4) % Nucleat RBC Rel Count 0.0 (0.00-0.1) % Eos # (Auto) 0.19 (0-0.5) x10^3/uL Immature Gran # (Auto) 0.04 H (0.00-0.03) x10^3u/L Absolute Lymphs (auto) 0.94 L (1.0-4.6) x10^3/uL Absolute Monos (auto) 0.69 (0.0-1.3) x10^3/uL Absolute Nucleated RBC 0.00 (0.00-0.01) x10^3u/L Lymphocytes % 18.7 L (24.0-44.0) % Monocytes % 13.7 H (0.0-12.0) % Eosinophils % 3.8 (0.00-5.0) % Basophils % 0.6 (0.0-0.4) % Absolute Granulocytes 3.14 (1.4-6.9) x10^3/uL Basophils # 0.03 (0-0.4) x10^3/uL Sodium 136 L (137-145) mmol/L Potassium 4.4 (3.5-5.1) mmol/L Chloride 103 (98-107) mmol/L Carbon Dioxide 23 (22-30) mmol/L Anion Gap 15.0 (5-15) MEQ/L BUN 23 H (7-17) mg/dL Creatinine 1.36 H (0.52-1.04) mg/dL Estimated GFR 39.8 ML/MIN Glucose 87 (74-106) mg/dL POC Glucometer (74 to 106) mg/dL Calcium 8.7 (8.4-10.2) mg/dL Radiology Exams: Radiology Procedures Category Date Time Status CHEST 1 VIEW (PORTABLE) DAILY Exams 02/27/22 08:00 Completed CHEST 1 VIEW (PORTABLE) Urgent Exams 02/26/22 09:00 Completed Assessment/Plan (1) Pneumonia Current Visit: Yes Status: Acute Qualifiers: Pneumonia type: due to unspecified organism Laterality: bilateral Lung location: lower lobe of lung Qualified Code(s): J18.9 - Pneumonia, unspecified organism Assessment & Plan: On rocephin and zithromax IV day #3. Code(s): J18.9 - PNEUMONIA, UNSPECIFIED ORGANISM (2) CHF exacerbation Current Visit: Yes Status: Acute Assessment & Plan: Breathing is good, no edema is apparent. Code(s): I50.9 - HEART FAILURE, UNSPECIFIED (3) Atrial fibrillation with RVR Current Visit: Yes Status: Acute Assessment & Plan: Has some intermittent elevated HR, mostly just into the low 120s but higher briefly with startle. She had a low bp to 103/71 this morning so I am reluctant to increase the atenolol. Code(s): I48.91 - UNSPECIFIED ATRIAL FIBRILLATION (4) Hypertension Current Visit: Yes Status: Chronic Qualifiers: Hypertension type: primary hypertension Qualified Code(s): I10 - Essential (primary) hypertension Code(s): I10 - ESSENTIAL (PRIMARY) HYPERTENSION (5) Hyperlipidemia Current Visit: Yes Status: Chronic Qualifiers: Hyperlipidemia type: unspecified Qualified Code(s): E78.5 - Hyperlipidemia, unspecified Code(s): E78.5 - HYPERLIPIDEMIA, UNSPECIFIED (6) Diabetes mellitus type II, controlled Current Visit: Yes Status: Chronic Qualifiers: Diabetes mellitus snf insulin use: without buttermaker continuous churn use Diabetes mellitus complication status: with kidney complications Diabetes mellitus complication detail: with chronic kidney disease Chronic kidney disease stage: stage 3 (moderate) Qualified Code(s): E11.22 - Type 2 diabetes mellitus with diabetic chronic kidney disease; N18.30 - Chronic kidney disease, stage 3 unspecified Assessment & Plan: BS 150-200. Code(s): E11.9 - TYPE 2 DIABETES MELLITUS WITHOUT COMPLICATIONS (7) Chronic renal insufficiency Current Visit: Yes Status: Chronic Qualifiers: Chronic kidney disease stage: stage 3 (moderate) Assessment & Plan: renal function somewhat better today, eGFR 39.8 (was 35.8 yesterday). Code(s): N18.9 - CHRONIC KIDNEY DISEASE, UNSPECIFIED (8) Dementia Current Visit: Yes Status: Chronic Qualifiers: Dementia type: Alzheimer's Alzheimer's disease onset: unspecified onset Dementia behavioral disturbance: without behavioral disturbance Qualified Code(s): G30.9 - Alzheimer's disease, unspecified; F02.80 - Dementia in other diseases classified elsewhere without behavioral disturbance Code(s): F03.90 - UNSPECIFIED DEMENTIA WITHOUT BEHAVIORAL DISTURBANCE
[2022-02-28] MEDS: Amaryl 2 MG PO SCH (09:14)
[2022-02-28] MEDS: TENORMIN 50 MG PO SCH (09:22)
[2022-02-28] MEDS: ZOCOR 20MG PO SCH (09:22)
[2022-02-28] MEDS: Cymbalta 30 MG Capsule PO SCH (09:22)
[2022-02-28] MEDS: LASIX 20 MG PO SCH (09:22)
[2022-02-28] MEDS: Klor Con PO SCH (09:22)
[2022-02-28] MEDS: PROTONIX 40 MG IV IV SCH (10:14)
[2022-02-28] MEDS: ROCEPHIN 1 Gm-D5w 50 ml Bag** 1 G/50 ML IVPB IV SCH (10:15)
[2022-02-28] MEDS: Zithromax 500 MG/ 250 ML NaCl Premix 500 MG/250 ML IVPB IV SCH (10:52)
[2022-02-28] MEDS: XARELTO 10 MG TABLET PO SCH (17:21)
[2022-02-28] MEDS: AMITRIPTYLINE 25 MG TABLET PO SCH (21:15)
[2022-02-28] MEDS: Aricept 10 MG PO SCH (21:15)
[2022-03-01] MEDS: SYNTHROID 100 MCG PO SCH (05:35)
[2022-03-01] MEDS: Cymbalta 30 MG Capsule PO SCH (08:33)
[2022-03-01] MEDS: TENORMIN 50 MG PO SCH (08:33)
[2022-03-01] MEDS: LASIX 20 MG PO SCH (08:34)
[2022-03-01] MEDS: PROTONIX 40 MG IV IV SCH ×2 (08:34→08:57)
[2022-03-01] MEDS: Klor Con PO SCH (08:34)
[2022-03-01] MEDS: ZOCOR 20MG PO SCH (08:34)
[2022-03-01] MEDS: Zithromax 500 MG/ 250 ML NaCl Premix 500 MG/250 ML IVPB IV SCH ×2 (08:34→08:57)
[2022-03-01] MEDS: Amaryl 2 MG PO SCH (08:34)
[2022-03-01] MEDS: ROCEPHIN 1 Gm-D5w 50 ml Bag** 1 G/50 ML IVPB IV SCH (08:57)
--- NOTE | 2022-03-01 13:20 | PCM.NOTE ---
Date and Time: 03/01/22 1319 Subjective Assessment: Patient is asleep in the chair ,just had lunch,ate 1/2 of a sandwich. Does not know the day or year and thinks she is in [place]. She had B/P 179/90 this morning. Was not ambulating steadily while on Ativan and that was stopped ,last dose about 11/2 days ago. - Review of Systems Constitutional: No Symptoms Respiratory: No Symptoms Cardiac: No Symptoms Abdominal/Gastrointestinal: No Symptoms Genitourinary Symptoms: No Symptoms Objective Exam General Appearance: no apparent distress Neurologic Exam: alert (oriented to person), cooperative Skin Exam: normal color, warm, dry Respiratory Exam: crackles/rales (right base) Cardiovascular Exam: irregular (rate 100) Extremity Exam: normal inspection (no edema moves all extremities) OBJECTIVE DATA Vital Signs: Vital Signs - 24 hr Temp Pulse Resp BP BP BP Pulse Ox 03/01/22 11:19 98.1 F 109 H 18 132/79 97 03/01/22 08:33 173/90 03/01/22 07:08 97.9 F 127 H 16 173/90 95 03/01/22 04:00 97.7 F 106 H 18 144/63 96 02/28/22 23:46 97.9 F 104 H 18 147/80 95 02/28/22 20:00 97.7 F 107 H 18 130/83 96 02/28/22 16:00 97.3 F 101 H 19 150/76 95 Pain Assessment - Last Documented Pain Intensity 0 Intake and Output: Intake & Output 02/27/22 02/28/22 03/01/22 03/02/22 11:59 11:59 11:59 11:59 Intake Total 680 484 424 Output Total 425 479 425 Balance 255 -266 -1 Weight 85.7 kg 83.8 kg 84.2 kg Lab Results: Lab Results-Last 24 Hours 02/28/22 02/28/22 03/01/22 Range/Units 16:57 21:30 07:26 POC Glucometer 176 H 192 H 137 H (74 to 106) mg/dL 03/01/22 Range/Units 11:14 POC Glucometer 185 H (74 to 106) mg/dL Assessment/Plan (1) Altered mental status Status: Acute Qualifiers: Altered mental status type: unspecified Qualified Code(s): R41.82 - Altered mental status, unspecified Assessment & Plan: Patient is confused today but in NAD ,is to go hoe with her grandaughter. Nursing states ptn is sleeping ok and eating,possibly at her baseline. Code(s): R41.82 - ALTERED MENTAL STATUS, UNSPECIFIED (2) CHF exacerbation Status: Acute Assessment & Plan: BNP 6,000 and B/P 170/90 - Lasix,monitor Code(s): I50.9 - HEART FAILURE, UNSPECIFIED
[2022-03-01] MEDS: XARELTO 10 MG TABLET PO SCH (17:52)
[2022-03-01] MEDS: Lasix 40 MG PO SCH (17:52)
[2022-03-01 18:16] LABS: ALBUMIN 3.3 g/dL (3.5-5.0); ANION GAP 12.5 MEQ/L (5-15); BILIRUBIN,TOTAL 0.5 mg/dL (0.2-1.3); Calcium 9.2 mg/dL (8.4-10.2); Creatinine 1 1.44 mg/dL (0.52-1.04); EST GLOMERULAR FILTRATION RATE 37.2 ML/MIN; Potassium 5.2 mmol/L (3.5-5.1); Total Protein 6.5 g/dL (6.3-8.2)
[2022-03-01] MEDS: Aricept 10 MG PO SCH (22:38)
[2022-03-01] MEDS: AMITRIPTYLINE 25 MG TABLET PO SCH (22:40)
[2022-03-01] MEDS: HUMALOG SQ PRN (22:42)
[2022-03-02 05:09] LABS: Absolute Neutrophil Ct (ANC) 3.69 x10^3/uL (1.4-6.9); Basophil (Absolute #) 0.04 x10^3/uL (0-0.4); Eosinophil % 3.3 % (0.00-5.0); Eosinophil (Absolute #) 0.18 x10^3/uL (0-0.5); Hematocrit 44.8 % (35-47); Hemoglobin 13.3 g/dL (12.0-16.0); Lymphocyte (Absolute #) 0.75 x10^3/uL (1.0-4.6); Lymphocytes % 13.7 % (24.0-44.0); Mean Corpuscular Hemoglobin 26.1 pg (26-32); Mean Corpuscular Hgb Concent. 29.7 g/dL (32-36); Mean Platelet Volume 10.9 fL (7.5-11.0); Monocyte (Absolute #) 0.77 x10^3/uL (0.0-1.3); Monocytes % 14.1 % (0.0-12.0); Neutrophil % 67.5 % (36.0-66.0); Platelet Count 208 x10^3/uL (150-450); Red Blood Count 5.09 x10^6/uL (4.1-5.4); Red Cell Distribution Width 16.2 % (11.5-14.0); White Blood Count 5.5 x10^3/uL (4.0-10.5)
[2022-03-02 05:46] LABS: BILIRUBIN,TOTAL 0.3 mg/dL (0.2-1.3); Calcium 8.7 mg/dL (8.4-10.2); Creatinine 1 1.28 mg/dL (0.52-1.04); EST GLOMERULAR FILTRATION RATE 42.6 ML/MIN; Potassium 4.3 mmol/L (3.5-5.1); Total Protein 6.1 g/dL (6.3-8.2)
[2022-03-02] MEDS: SYNTHROID 100 MCG PO SCH (06:17)
[2022-03-02] MEDS: Amaryl 2 MG PO SCH (08:45)
[2022-03-02] MEDS: PROTONIX 40 MG IV IV SCH (09:50)
[2022-03-02] MEDS: TENORMIN 50 MG PO SCH ×2 (09:50→22:34)
[2022-03-02] MEDS: Klor Con PO SCH (09:50)
[2022-03-02] MEDS: ZOCOR 20MG PO SCH (09:51)
[2022-03-02] MEDS: Lasix 40 MG PO SCH ×2 (09:51→18:06)
[2022-03-02] MEDS: Cymbalta 30 MG Capsule PO SCH (09:51)
[2022-03-02] MEDS: Zithromax 500 MG/ 250 ML NaCl Premix 500 MG/250 ML IVPB IV SCH (09:52)
[2022-03-02] MEDS: ROCEPHIN 1 Gm-D5w 50 ml Bag** 1 G/50 ML IVPB IV SCH (10:09)
[2022-03-02] MEDS: XARELTO 10 MG TABLET PO SCH (18:05)
[2022-03-02] MEDS: HUMALOG SQ PRN ×2 (18:06→22:36)
[2022-03-02] MEDS: Aricept 10 MG PO SCH (22:34)
[2022-03-02] MEDS: AMITRIPTYLINE 25 MG TABLET PO SCH (22:34)
[2022-03-03 05:30] LABS: Mean Cell Volume 83.3 fL (78-100); Mean Corpuscular Hemoglobin 26.4 pg (26-32); Mean Corpuscular Hgb Concent. 31.7 g/dL (32-36); Mean Platelet Volume 10.7 fL (7.5-11.0); Red Blood Count 4.92 x10^6/uL (4.1-5.4); Red Cell Distribution Width 16.4 % (11.5-14.0); White Blood Count 6.6 x10^3/uL (4.0-10.5)
[2022-03-03 05:40] LABS: Creatinine 1 1.48 mg/dL (0.52-1.04); EST GLOMERULAR FILTRATION RATE 36.1 ML/MIN
[2022-03-03] MEDS: SYNTHROID 100 MCG PO SCH (06:05)
[2022-03-03 06:49] LABS: Platelet Count 319 x10^3/uL (150-450)
[2022-03-03] MEDS: Amaryl 2 MG PO SCH (07:08)
[2022-03-03] MEDS: ZOCOR 20MG PO SCH (09:40)
[2022-03-03] MEDS: Cymbalta 30 MG Capsule PO SCH (09:40)
[2022-03-03] MEDS: Klor Con PO SCH (09:40)
[2022-03-03] MEDS: Lasix 40 MG PO SCH (09:41)
[2022-03-03] MEDS: PROTONIX 40 MG IV IV SCH (09:41)
[2022-03-03] MEDS: TENORMIN 50 MG PO SCH (10:10)
[2022-03-03 13:08] VITALS: BP 102/76; PULSE 88; O2SAT 93
[2022-03-03] MEDS: Zithromax 500 MG/ 250 ML NaCl Premix 500 MG/250 ML IVPB IV SCH (13:21)
[2022-03-03] MEDS: ROCEPHIN 1 Gm-D5w 50 ml Bag** 1 G/50 ML IVPB IV SCH (13:21)
--- NOTE | 2022-03-08 15:16 | ECHO ---
DATE OF PROCEDURE: 03/01/2022 PROCEDURE: Complete two-dimensional echocardiogram with color Doppler and Spectral analysis. INDICATION: Elevated BNP. DESCRIPTION OF FINDINGS: This is a technically difficult study with very poor acoustic windows. Interpretation is quite limited due to poor study quality. The left ventricle appears to be normal size with mild to moderate left ventricular hypertrophy. Left ventricular systolic function appears to be moderately reduced with ejection fraction of 35 to 45%. The right ventricle is normal size with normal systolic function. The left atrium appears at least mildly dilated. The right atrium is not is not well visualized. The aortic valve is heavily calcified with restricted leaflet motion. Peak aortic valve gradient and one single Spectral window has a peak aortic gradient of 24 mm of Mercury. Mean aortic valve gradient 14.9 mm of Mercury. Dimensionless index is 0.31. Cannot exclude hemodynamically significant aortic stenosis. The mitral valve has moderate mitral annular calcification. There is trace mitral regurgitation. The tricuspid valve is not well visualized. There is no significant tricuspid regurgitation. Unable to estimate right ventricular systolic pressure. The pulmonic valve is not well visualized. The aortic root is normal in diameter. There is no pericardial effusion. IMPRESSION: 1) NORMAL LEFT VENTRICULAR SIZE WITH MILD TO MODERATE LEFT VENTRICULAR HYPERTROPHY. 2) MODERATELY REDUCED LEFT VENTRICULAR EJECTION FRACTION OF 35 TO 45%. 3) NORMAL RIGHT VENTRICULAR SIZE AND SYSTOLIC FUNCTION. 4) AORTIC VALVE IS HEAVILY CALCIFIED WITH RESTRICTED LEAFLET MOTION. CANNOT EXCLUDE HEMODYNAMICALLY SIGNIFICANT AORTIC STENOSIS. 5) TRACE MITRAL REGURGITATION. 6) UNABLE TO ESTIMATE RIGHT VENTRICULAR SYSTOLIC PRESSURE DUE TO INADEQUATE TRICUSPID REGURGITANT SIGNAL. 7) NO PERICARDIAL EFFUSION. 8) THIS IS A TECHNICALLY DIFFICULT STUDY WITH VERY POOR ACOUSTIC WINDOWS LIMITING DIAGNOSTIC YIELD OF THIS STUDY.
--- NOTE | 2022-04-05 20:57 | PCM.HP ---
History of Present Illness - Chief Complaint Chief Complaint: AFIB W/RVR, CHF Date: 02/26/22 History of Present Illness: is a 81 year old female. Presented to ER after having episode of chest pain, daughter had noted she had sob chest pain and noted her bp has been running high for the past several days. Pt. admitted for further evaluation after finding she was in a-fib with rvr, pt. is chronically in a-fib. - Review of Systems Constitutional: No Fever, No Chills Eyes: No Symptoms Ears, Nose, & Throat: No Symptoms Respiratory: No Cough, No Short Of Breath Cardiac: No Chest Pain, No Edema, No Syncope Abdominal/Gastrointestinal: No Abdominal Pain, No Nausea, No Vomiting, No Diarrhea Genitourinary Symptoms: No Dysuria Musculoskeletal: No Back Pain, No Neck Pain Skin: No Rash Neurological: No Dizziness, No Focal Weakness, No Sensory Changes Psychological: No Symptoms Endocrine: No Symptoms Hematologic/Lymphatic: No Symptoms Immunological/Allergic: No Symptoms Medications & Allergies Home Medications: Home Medication List Donepezil HCl 23 mg PO HS 07/01/19 [History Confirmed 02/25/22] Duloxetine HCl 60 mg PO DAILY 07/01/19 [History Confirmed 02/25/22] Rivaroxaban [Xarelto] 15 mg PO 1700 07/01/19 [History Confirmed 02/25/22] Glimepiride 2 mg [Amaryl 2 MG] 2 mg PO 0800 11/13/20 [History Confirmed 02/25/22] Simvastatin 20Mg [Zocor 20Mg] 20 mg PO DAILY 11/13/20 [History Confirmed 02/25/22] Furosemide 20 mg [Lasix 20 mg] 20 mg PO DAILY 05/26/21 [History Confirmed 02/25/22] Amitriptyline HCl 25 mg [Amitriptyline 25 mg Tablet] 25 mg PO HS 02/25/22 [History Confirmed 02/25/22] Dapagliflozin Propanediol [Farxiga] 10 mg PO DAILY 02/25/22 [History Confirmed 02/25/22] Finerenone [Kerendia] 20 mg PO DAILY 02/25/22 [History Confirmed 02/25/22] Levothyroxine Sodium 100 Mcg [Synthroid 100 Mcg] 100 mcg PO 0600 02/25/22 [History Confirmed 02/25/22] Liothyronine Sodium [place] [address]/25/22 [History Confirmed 02/25/22] Metformin HCl 500 mg [Glucophage 500 MG] 1,000 mg PO BIDWM 02/25/22 [History Confirmed 02/25/22] Potassium Chloride [Klor-Con 10] 20 meq PO DAILY 02/25/22 [History Confirmed 02/25/22] Atenolol 50 mg [Tenormin 50 mg] 50 mg PO BID #60 tablet 03/03/22 [Rx] Allergies/Adverse Reactions: Allergies Allergy/AdvReac Type Severity Reaction Status Date / Time cortisone Allergy Rash Verified 02/25/22 10:57 - Past Medical History Past Medical History: Yes Neurological History: Dementia ENT History: Cataracts Cardiac History: Arrhythmia, High Cholesterol, Hypertension Respiratory History: No Pertinent History Endocrine Medical History: Diabetes Type II Musculoskelatal History: Other GI Medical History: No Pertinent History History: Renal Disease Pyscho-Social History: Anxiety, Depression Reproductive Disorders: No Pertinent History Comment: OSTEOPENIA, CKD STAGE 3, POLYNEUROPATHY. FX L TIBIA, FX LEFT ELBOW A CHILD. - Female History Are you now?: No - Past Surgical History Past Surgical History: Yes Neuro Surgical History: No Pertinent History Cardiac History: No Pertinent History Respiratory Surgery: No Pertinent History GI Surgical History: Cholecystectomy Genitourinary Surgical Hx: No Pertinent History Musculskeletal Surgical Hx: Orthopedic Surgery Female Surgical History: Hysterectomy Other Surgical History: L tibia plate and screws - Social History Smoking Status: Never smoker Exposure to second hand smoke: No Alcohol: None Drug Use: none - Physical Exam General Appearance: no apparent distress, alert Neurologic Exam: alert, oriented x 3, cooperative, normal mood/affect, nml cerebellar function, nml station & gait, sensation nml, No motor deficits Eye Exam: PERRL/EOMI, eyes nml inspection Ears, Nose, Throat Exam: normal ENT inspection, pharynx normal, moist mucous membranes Neck Exam: normal inspection, non-tender, supple, full range of motion Respiratory Exam: normal breath sounds, lungs clear, No respiratory distress Cardiovascular Exam: normal peripheral pulses, tachycardia, irregular Gastrointestinal/Abdomen Exam: soft, normal bowel sounds, No tenderness, No mass Back Exam: normal inspection, normal range of motion, No CVA tenderness, No vertebral tenderness Extremity Exam: normal inspection, normal range of motion, pelvis stable Skin Exam: normal color, warm, dry, No rash Lymphatic Exam: No adenopathy Results - Labs Lab/Micro Results: Microbiology 02/26/22 09:15 Blood Culture Gram Stain - Final Blood Not Reportable Blood Culture - Final NO GROWTH 02/26/22 09:00 Blood Culture Gram Stain - Final Blood Not Reportable Blood Culture - Final NO GROWTH Assessment/Plan (1) Atrial fibrillation with RVR Status: Acute Code(s): I48.91 - UNSPECIFIED ATRIAL FIBRILLATION (2) CHF exacerbation Status: Acute Code(s): I50.9 - HEART FAILURE, UNSPECIFIED (3) Chronic renal insufficiency, stage II (mild) Status: Acute Code(s): N18.2 - CHRONIC KIDNEY DISEASE, STAGE 2 (MILD)
--- NOTE | 2022-04-05 21:01 | PCM.DS ---
Discharge Summary Date of Admission: 02/25/22 17:15 Date of Discharge: 03/03/2022 Admitting Physician: HONG VARGAS Primary Care Provider: MYRON JOHNSON NP Allergies Allergies cortisone Allergy (Verified 02/25/22 10:57) Rash Hospital Summary - Hospital Course Hospital Course: Pt. admitted for further evaluation and treatment to control her heart rate, this was obtained, pt. treated with iv abx for possible underlieing infection not fully seen with exacerbation of chf. Pt. gradually was controlled with rate and diuresis was successful with pt. returning to her baseline and ready to be discharged back home under the care of her granddaughter. - Vitals & Intake/Output Vital Signs: Vital Signs Temperature 97.1 F 03/03/22 12:00 Pulse Rate 88 03/03/22 12:00 Respiratory Rate 13 03/03/22 12:00 Blood Pressure 102/76 03/03/22 12:00 O2 Sat by Pulse Oximetry 93 L 03/03/22 12:00 - Lab Result Diagrams: 03/03/22 05:10 03/03/22 05:10 Micro Results-Entire Visit: Microbiology 02/26/22 09:15 Blood Culture Gram Stain - Final Blood Not Reportable Blood Culture - Final NO GROWTH 02/26/22 09:00 Blood Culture Gram Stain - Final Blood Not Reportable Blood Culture - Final NO GROWTH Discharge Exam General Appearance: no apparent distress, alert Neurologic Exam: alert, oriented x 3, cooperative, normal mood/affect, nml cerebellar function, sensation nml, No motor deficits Eye Exam: PERRL, EOMI, eyes nml inspection Ears, Nose, Throat Exam: normal ENT inspection, pharynx normal, moist mucous membranes Neck Exam: normal inspection, non-tender, supple, full range of motion Respiratory Exam: normal breath sounds, lungs clear, No respiratory distress Cardiovascular Exam: normal heart sounds, irregular Gastrointestinal/Abdomen Exam: soft, No tenderness, No mass Pelvic Exam: deferred Rectal Exam: deferred Back Exam: normal inspection, normal range of motion, No CVA tenderness, No vertebral tenderness Extremity Exam: normal inspection, normal range of motion Skin Exam: normal color, warm, dry Final Diagnosis/Problem List - Final Discharge Diagnosis/Problem (1) Atrial fibrillation with RVR Status: Acute Code(s): I48.91 - UNSPECIFIED ATRIAL FIBRILLATION (2) CHF exacerbation Status: Acute Code(s): I50.9 - HEART FAILURE, UNSPECIFIED (3) Chronic renal insufficiency, stage II (mild) Status: Acute Code(s): N18.2 - CHRONIC KIDNEY DISEASE, STAGE 2 (MILD) (4) Dementia Status: Chronic Code(s): F03.90 - UNSPECIFIED DEMENTIA WITHOUT BEHAVIORAL DISTURBANCE - Discharge Discharge Date: 03/03/22 Disposition: Home, Self-Care Condition: Stable Prescriptions: New Atenolol 50 mg [Tenormin 50 mg] 50 mg PO BID #60 tablet Continue Rivaroxaban [Xarelto] 15 mg PO 1700 Duloxetine HCl 60 mg PO DAILY Donepezil HCl 23 mg PO HS Simvastatin 20Mg [Zocor 20Mg] 20 mg PO DAILY Glimepiride 2 mg [Amaryl 2 MG] 2 mg PO 0800 Furosemide 20 mg [Lasix 20 mg] 20 mg PO DAILY Metformin HCl 500 mg [Glucophage 500 MG] 1,000 mg PO BIDWM Amitriptyline HCl 25 mg [Amitriptyline 25 mg Tablet] 25 mg PO HS Potassium Chloride [Klor-Con 10] 20 meq PO DAILY Finerenone [Kerendia] 20 mg PO DAILY Dapagliflozin Propanediol [Farxiga] 10 mg PO DAILY Liothyronine Sodium 5 mcg PO 0600 Levothyroxine Sodium 100 Mcg [Synthroid 100 Mcg] 100 mcg PO 0600 Discontinued atenoloL [Atenolol] 50 mg PO DAILY Instructions: Atrial Fibrillation (DC), Heart Failure, Adult (DC) Follow up with: MYRON JOHNSON NP [Primary Care Provider] - 03/11/22 12:15 pm Forms: Discharge Instructions
== END 2022-03-03 12:12 | disposition home or self-care (01) | DRG 308 ==
LOC: ED 10:31 → ICU 13:08 → OBSVTOIN 17:15 → MED SURG 02-28 15:53
PROVIDERS: ADMIT Family Medicine; ATTEND Family Medicine
DX: I48.91 Unspecified atrial fibrillation (principal); J18.9 Pneumonia, unspecified organism; I11.0 Hypertensive heart disease with heart failure; I50.9 Heart failure, unspecified; E78.5 Hyperlipidemia, unspecified; N18.2 Chronic kidney disease, stage 2 (mild); F03.90 Unspecified dementia, unspecified severity, without behavioral disturbance, psychotic disturbance, mood disturbance, and anxiety; E11.22 Type 2 diabetes mellitus with diabetic chronic kidney disease; Z79.899 Other long term (current) drug therapy; Z20.828 Contact with and (suspected) exposure to other viral communicable diseases; Z79.01 Long term (current) use of anticoagulants
CPT/HCPCS: 0241U; 36000; 36415; 71045; 80048; 80053; 81015; 82947; 83036; 83880; 84484; 85025; 85027; 87040; 93005; 93041; 93306; 96374; 96375; 99285; J0456; J0696; J1817; J1940; J2060; J2405; A9270-GY